=== PATIENT | male | born 1960 | race Caucasian/White ===

== ENCOUNTER → 2017-01-14 | Outpatient (CLI) | payer OTHER ==
[~2017-01-14] MED LIST: LIDOCAINE 1% 300 MG/30 ML SDV ONE
== END ==
LOC: FIMAGING 09:58
PROVIDERS: ATTEND Internal Medicine
PROC: 0JBM3ZX Excision of Left Upper Leg Subcutaneous Tissue and Fascia, Percutaneous Approach, Diagnostic (ICD-10-PCS; principal; 2017-01-14)
DX: C43.72 Malignant melanoma of left lower limb, including hip (principal)

== ENCOUNTER 2017-02-17 05:46 | Day surgery (SDC) | payer OTHER ==
[2017-02-17] MEDS ORDERED: LR 1,000 ML IV ONE (06:15)
[2017-02-17 06:22] VITALS: PULSE 63
[2017-02-17] MEDS ORDERED: BUPIVACAINE 0.5% 30 ML SDV ONE (06:52)
--- NOTE | 2017-02-17 07:02 | PDANEPAE ---
ANE History of Present Illness left groin lymph node bxc for melanoma ANE Past Medical History - Cardiovascular History Hx Hypertension: No Hx Arrhythmias: Yes Hx Chest Pain: No Hx Coronary Artery / Peripheral Vascular Disease: No Hx CHF / Valvular Disease: No Hx Palpitations: No Cardiovascular History Comment: HX OF IRREGULAR HEARTBEAT DURING SURGERY HAS BEEN FOLLOWED UP WITH CARDIOLOGY NO KNOWN REASON. BP HAS BEEN ELEVATED- F/U WITH PCP NO TX NEEDED - Pulmonary History Hx COPD: No Hx Asthma/Reactive Airway Disease: No Hx Recent Upper Respiratory Infection: No Hx Oxygen in Use at Home: No Hx Sleep Apnea: Yes Sleep Apnea Screening Result - Last Documented: Positive Pulmonary History Comment: DENIES SOB W STAIRS - Neurologic History Hx Cerebrovascular Accident: No Hx Seizures: No Hx Dementia: No Neurologic History Comment: CHRONIC MIGRAINES- recently placed on Metoprolol for H/A - Endocrine History Hx Diabetes: No Endocrine History Comment: LOW THYROID - Renal History Hx Renal Disorders: No - Liver History Hx Hepatic Disorders: No - Neurological & Psychiatric Hx Hx Neurological and Psychiatric Disorders: Yes Neurological / Psychiatric History Comment: HX OF DEPRESSION NONE CURRENTLY - Cancer History Hx Cancer: Yes Cancer History Comment: MELANOMA NEW DX - Congenital Disorder History Hx Congenital Disorders: No - GI History Hx Gastrointestinal Disorders: No - Other Health History Other Health History: OA ASLBADOR KNEES AND WRISTS. - Chronic Pain History Chronic Pain: No - Surgical History Prior Surgeries: Excision of 3 maligant moles '15. LEFT KNEE SURGERY IN 1990. LEFT KNEE SCOPE X3. 30 YEARS AGO BROKEN LEFT WRIST REPAIR. MELANOMA BX AND LYMPH NODES ANE Review of Systems Review of systems is: negative Review of Systems: - Exercise capacity Exercise capacity: >=4 METS METS (RN): 4 METS ANE Patient History - Allergies Allergies/Adverse Reactions: ENVIRONMENTAL Allergy (Mild, Uncoded 02/17/17 06:32) RHINITIS - Home Medications Home Medications: Levothyroxine 02/16/17 [Last Taken 02/17/17] Metoprolol Succinate 02/16/17 [Last Taken 02/17/17] VITAMIN D 02/16/17 [Last Taken 02/16/17] - NPO status NPO Status: no food or drink >8 hours NPO Since - Liquids (Date): 02/16/17 NPO Since - Liquids (Time): 22:30 NPO Since - Solids (Date): 02/16/17 NPO Since - Solids (Time): 21:00 - Anes Hx Anes Hx: no prior problems - Smoking Hx Smoking Status: Never smoked - Alcohol Use Alcohol Use: Heavy (3-4/day) - Family Anes Hx Family Hx Anesthesia Complications: NONE ANE Labs/Vital Signs - Vital Signs Blood Pressure: 159/95 Heart Rate: 63 Respiratory Rate: 16 O2 Sat (%): 93 Height: 180.34 cm Weight: 117.934 kg ANE Physical Exam - Airway Mallampati Score: Class 3 - Pulmonary Pulmonary: no respiratory distress - Cardiovascular Cardiovascular: regular rate and rhythym - ASA Status ASA Status: II ANE Anesthesia Plan Anesthesia Plan: GA w LMA
[2017-02-17] MEDS ORDERED: MIDAZOLAM 2 MG/2 ML VIAL IVP ONE (07:03)
[2017-02-17] MEDS ORDERED: ceFAZolin 2 GM/SWFI 2 GM/20 ML SYR IVP ONE (07:06)
--- NOTE | 2017-02-17 07:06 | PDHPUP ---
History & Physical Update H&P update statement: This history and physical update is based on an assessment of the patient which was completed after admission or registration (within 24 hours), but prior to the surgery/procedure. H&P update: H&P reviewed & patient examined, no change in patient's condition since H&P completed
[2017-02-17] MEDS ORDERED: PROPOFOL 200 MG/20 ML VIAL ONE (07:13)
[2017-02-17] MEDS ORDERED: LIDOCAINE 2% 5 ML SDV ONE (07:13)
[2017-02-17] MEDS ORDERED: fentaNYL 100 MCG/2 ML INJ ONE ×2 (07:13→08:29)
[2017-02-17] MEDS ORDERED: KETOROLAC 30 MG/1 ML SDV ONE (07:26)
[2017-02-17] MEDS ORDERED: DEXAMETHASONE 4 MG/ML VIAL ONE (07:26)
[2017-02-17] MEDS ORDERED: ONDANSETRON 4 MG/2 ML VIAL ONE (07:26)
--- NOTE | 2017-02-17 09:13 | POSTOPPROG ---
Post Op Note Date of Operation: 02/17/17 Surgeon: Jacqueline Brito Service Electrician: riana zhou Anesthesiologist: max Anesthesia: GET(General Endotracheal) Pre-op Diagnosis: recurrent melanoma Post-op Diagnosis: same Indication: 56yo M with bx-proven recurrent melanoma in left inguinal nodes Procedure: superficial and deep inguinal LN dissection Inf/Abcess present in the surg proc area at time of surgery?: No EBL: Minimal Drains: Trace Rhoades
[2017-02-17] MEDS ORDERED: OXYCODONE/APAP 5/325 TAB PO PRN (09:14)
[2017-02-17] MEDS ORDERED: fentaNYL 100 MCG/2 ML INJ IVP PRN (09:14)
[2017-02-17] MEDS ORDERED: HYDROCODONE/APAP 5/325 TAB PO PRN (09:14)
[2017-02-17] MEDS ORDERED: ONDANSETRON 4 MG/2 ML VIAL IVP PRN (09:14)
[2017-02-17] MEDS ORDERED: ACETAMINOPHEN 500 MG TAB PO PRN (09:14)
[2017-02-17] MEDS ORDERED: ALBUTEROL 3 ML DEYVIAL IH PRN (09:14)
[2017-02-17] MEDS ORDERED: NALOXONE HCL 0.4 MG/ML INJ IVP PRN ×2 (09:14)
[2017-02-17] MEDS ORDERED: HYDROmorphONE/DILAUDID 1 MG/ML INJ IVP PRN (09:14)
--- NOTE | 2017-02-17 09:16 | POSTANESTH ---
Post Anesthetic Evaluation Cardiovascular Status: Normal, Stable Respiratory Status: Normal, Stable Level of Consciousness/Mental Status: Can Participate in Eval Pain Control: Adequate, Prn Tx Ordered Nausea/Vomiting Control: Adequate, Prn Tx Ordered Complications Possibly Related to Anesthesia: None Noted
[2017-02-17 09:54] VITALS: RESP 22
[2017-02-17 12:50] VITALS: TEMP 99
[2017-02-17 13:16] VITALS: BP 136/80; O2SAT 92
--- NOTE | 2017-02-18 13:17 | GOP ---
[f rep st] OPERATIVE REPORT DATE OF OPERATION: 02/17/2017 SURGEON: Jacqueline Brito MD HOSPICE ADMINISTRATOR: Gill Storm, FAUZIA. ANESTHESIA: General. ANESTHESIOLOGIST: Edwin Beverly MD. PREOPERATIVE DIAGNOSIS: Metastatic malignant melanoma, left thigh. POSTOPERATIVE DIAGNOSIS: Metastatic malignant melanoma, left thigh. PROCEDURE PERFORMED: Left groin and thigh inguinal lymph node dissection. FINDINGS: SPECIMENS: Inguinal lymph node tissue, additional lateral tissue, [place] node and fascia. ESTIMATED BLOOD LOSS: 10 cc. INDICATIONS: The patient is a 56-year-old man, who underwent wide local excision and sentinel lymph node for malignant melanoma in January 2015. He developed a mass in his thigh and has a recurrence. DESCRIPTION OF PROCEDURE: Patient was brought into the operating room, placed supine on the table, a nd general anesthesia was administered. His left thigh and groin were prepped and draped in the usua l sterile fashion. I used 30 cc of local throughout the case. I made an incision longitudinal from his inguinal ligament, down his thigh. I created medial and lateral skin flaps. I carefully dissect ed around all the fatty erika tissue and excised this. There was a bit of melanin deposit on the fas kadi over the vastus, and so I excised the fascia, as well. The adipose tissue on the lateral side of thigh felt grainy, and so I excised additional tissue on this side. I then opened up the sheath to explore and obtain more tissue between the femoral artery and femoral vein. I then continued my diss ection cephalad, until I encountered [place] node. This was excised and sent separately. As I was d issecting, I used multiple hemoclips for the lymphatic channels, as well as the small tributary vesse ls along the saphenous vein. Hemostasis was achieved in the cavity. A 15 round silicone drain was p laced in the wound and exited inferiorly. It was sutured in place with 3-0 nylon. I closed the bledsoe th over the vessels. I then closed the deep layer with 3-0 Vicryl. Skin closed with 3-0 Vicryl, 4-0 Monocryl, and additional sutures with 3-0 nylon. Dressing was applied. He was awakened in the oper ating room, extubated, transferred to PACU in stable condition. /[id number]/MODL
== END 2017-02-17 13:10 | disposition home or self-care (01) ==
LOC: FSGY 05:46
PROVIDERS: ATTEND Surgery
PROC: 0JBM0ZX Excision of Left Upper Leg Subcutaneous Tissue and Fascia, Open Approach, Diagnostic (ICD-10-PCS; principal; 2017-02-17 07:15)
PROC: 07BJ0ZX Excision of Left Inguinal Lymphatic, Open Approach, Diagnostic (ICD-10-PCS; principal; 2017-02-17 07:15)
DX: C77.4 Secondary and unspecified malignant neoplasm of inguinal and lower limb lymph nodes (principal); C43.9 Malignant melanoma of skin, unspecified
CPT/HCPCS: J0171; J0690; J1100; J1885; J2250; J2405; J2704; J3010

== ENCOUNTER 2017-03-30 10:46 | Inpatient (IN) | payer OTHER ==
[~2017-03-30 10:46] MED LIST changes: +ACETAMINOPHEN 500 MG TAB PO ONE; -LIDOCAINE 1% 300 MG/30 ML SDV ONE; +PREGABALIN 150 MG CAP PO ONE; +ROPIVACAINE 0.2% 80 MG, EPINEPHrine 0.2 MG, KETOROLAC TROMETHAMINE 30 MG, morphINE 10 M... IU ONE; +TRANEXAMIC ACID 3,000 MG in NS 50 ML IRR ONE; +ceFAZolin 2 GM/SWFI 2 GM/20 ML SYR IVP ONE
[2017-03-30] MEDS ORDERED: BUPIVACAINE/EPI 0.5% 30 ML SDV ONE (11:10)
[2017-03-30] MEDS ORDERED: CALCIUM CHLORIDE 1 GM/10 ML INJ ONE (11:11)
[2017-03-30] MEDS ORDERED: THROMBIN (BOVINE) 5,000 UNIT VIAL TP ONE (11:11)
[2017-03-30] MEDS ORDERED: BACITRACIN 50,000 UNITS/10 ML SYR IRR ONE (11:12)
[2017-03-30] MEDS ORDERED: POLYMYXIN B SULFATE 500,000 UNIT/10 ML SYR IRR ONE (11:12)
[2017-03-30] MEDS ORDERED: LR 1,000 ML IV ONE (11:17)
[2017-03-30] MEDS ORDERED: ceFAZolin 2 GM/SWFI 20 ML SYR IVP ONE (11:45)
[2017-03-30] MEDS ORDERED: ACETAMINOPHEN 500 MG TAB ONE (11:45)
[2017-03-30] MEDS: LEVOTHYROXINE 50 MCG TAB PO SCH (11:47)
[2017-03-30] MEDS: METOPROLOL SUCCINATE XR 25 MG TAB PO SCH (11:48)
[2017-03-30] MEDS ORDERED: PREGABALIN 150 MG CAP ONE (11:49)
--- NOTE | 2017-03-30 12:41 | PDANEPAE ---
ANE History of Present Illness 56 YO m W oa Here for L TKA ANE Past Medical History - Cardiovascular History Hx Hypertension: Yes Hx Arrhythmias: Yes Hx Chest Pain: No Hx Coronary Artery / Peripheral Vascular Disease: No Hx CHF / Valvular Disease: No Hx Palpitations: No Cardiovascular History Comment: HX OF IRREGULAR HEARTBEAT DURING SURGERY HAS BEEN FOLLOWED UP WITH CARDIOLOGY NO KNOWN REASON. BP HAS BEEN ELEVATED- F/U WITH PCP NO TX NEEDED - Pulmonary History Hx COPD: No Hx Asthma/Reactive Airway Disease: No Hx Recent Upper Respiratory Infection: No Hx Oxygen in Use at Home: No Hx Sleep Apnea: Yes Sleep Apnea Screening Result - Last Documented: Positive Pulmonary History Comment: DENIES SOB W STAIRS - Neurologic History Hx Cerebrovascular Accident: No Hx Seizures: No Hx Dementia: No Neurologic History Comment: CHRONIC MIGRAINES- recently placed on Metoprolol for H/A - Endocrine History Hx Diabetes: No Endocrine History Comment: LOW THYROID - Renal History Hx Renal Disorders: No - Liver History Hx Hepatic Disorders: No - Neurological & Psychiatric Hx Hx Neurological and Psychiatric Disorders: Yes Neurological / Psychiatric History Comment: HX OF DEPRESSION NONE CURRENTLY - Cancer History Hx Cancer: Yes Cancer History Comment: MELANOMA NEW DX - Congenital Disorder History Hx Congenital Disorders: No - GI History Hx Gastrointestinal Disorders: No - Other Health History Other Health History: OA SALBADOR KNEES AND WRISTS. - Chronic Pain History Chronic Pain: No - Surgical History Prior Surgeries: Excision of 3 maligant moles '15. LEFT KNEE SURGERY IN 1990. LEFT KNEE SCOPE X3. 30 YEARS AGO BROKEN LEFT WRIST REPAIR. MELANOMA BX AND LYMPH NODES ANE Review of Systems Review of Systems: - Exercise capacity METS (RN): 4 METS ANE Patient History - Allergies Allergies/Adverse Reactions: ENVIRONMENTAL Allergy (Mild, Uncoded 02/17/17 06:32) RHINITIS - Home Medications Home medications: home medication list seen and reviewed Home Medications: Cholecalciferol Vit D3 [Vitamin D3 (*)] 5,000 units PO BID #0 02/16/17 [Last Taken 03/23/17] Levothyroxine [Synthroid 50 mcg (*)] 50 mcg PO DAILY06 #0 02/16/17 [Last Taken 03/30/17 05:30] Metoprolol Succinate Xr [Toprol Xl 25 mg (*)] 25 mg PO DAILY #0 02/16/17 [Last Taken 03/30/17 05:30] Acetaminophen [Tylenol 325mg (*)] 325 mg PO DAILY PRN 02/24/17 [Last Taken 03/29 17:00] Aspirin [Aspirin 325 mg (*)] 325 mg PO DAILY PRN 02/24/17 [Last Taken 02/28/17] Ibuprofen [Motrin (*)] 200 mg PO DAILY PRN 02/24/17 [Last Taken Unknown] - NPO status NPO Status: no food or drink >8 hours NPO Since - Liquids (Date): 03/30/17 NPO Since - Liquids (Time): 09:00 NPO Since - Solids (Date): 03/29/17 NPO Since - Solids (Time): 19:30 - Anes Hx Anes Hx: no prior problems - Smoking Hx Smoking Status: Never smoked - Alcohol Use Alcohol Use: Heavy - Family Anes Hx Family Anes Hx: none Family Hx Anesthesia Complications: NONE ANE Labs/Vital Signs - Vital Signs Blood Pressure: 166/95 Heart Rate: 68 Respiratory Rate: 16 O2 Sat (%): 95 Height: 180.34 cm Weight: 117.934 kg ANE Physical Exam - Airway Neck exam: FROM Mallampati Score: Class 3 Mouth exam: tovar - Pulmonary Pulmonary: no respiratory distress, clear to auscultation - Cardiovascular Cardiovascular: regular rate and rhythym, no murmur, rub, or gallop - ASA Status ASA Status: II ANE Anesthesia Plan Anesthesia Plan: GA with mask, spinal Regional Anesthesia: single shot NB, adductor canal FNB Total IV Anesthesia: Yes
[2017-03-30] MEDS ORDERED: MIDAZOLAM 2 MG/2 ML VIAL IVP ONE (12:43)
[2017-03-30] MEDS ORDERED: PROPOFOL/EMULSION 500 MG/50 ML BOTTLE IV ONE ×3 (12:51→14:38)
--- NOTE | 2017-03-30 13:01 | PDGENHP ---
History & Physical Chief Complaint: l knee pain History of Present Illness: l knee pain worsening with use and time Pertinent Past, Social, Family History: n/a Relevant Physical Exam: perrl. cta. rrr. soft and nt. l knee - varus angle with spurs Cardiorespiratory Assessment: rrr cta
[2017-03-30] MEDS ORDERED: TRANEXAMIC ACID 3,000 MG/50 ML BAG IRR ONE (13:02)
[2017-03-30] MEDS ORDERED: PROPOFOL 200 MG/20 ML VIAL ONE (13:45)
[2017-03-30] MEDS ORDERED: ROPIVACAINE HCL 150 MG/30 ML INJ ONE (14:20)
[2017-03-30] MEDS ORDERED: clonIDINE 1 MG/10 ML VIAL EP ONE (14:20)
[2017-03-30] MEDS ORDERED: ONDANSETRON 4 MG/2 ML VIAL IVP PRN ×2 (14:52→15:22)
[2017-03-30] MEDS ORDERED: HYDROCODONE/APAP 5/325 TAB PO PRN (14:52)
[2017-03-30] MEDS ORDERED: NALOXONE HCL 0.4 MG/ML INJ IVP PRN (14:52)
[2017-03-30] MEDS ORDERED: HYDROmorphONE/DILAUDID 1 MG/ML INJ IVP PRN (14:52)
[2017-03-30] MEDS ORDERED: OXYCODONE/APAP 5/325 TAB PO PRN (14:52)
[2017-03-30] MEDS ORDERED: fentaNYL 100 MCG/2 ML INJ IVP PRN (14:52)
[2017-03-30] MEDS ORDERED: DIPHENOXYLATE/ATROPINE LOMOTIL 1 TAB PO PRN (15:22)
[2017-03-30] MEDS ORDERED: CYCLOBENZAPRINE 10 MG TAB PO PRN (15:22)
[2017-03-30] MEDS ORDERED: MAGNESIUM HYDROXIDE 30 ML UDCUP PO PRN (15:22)
[2017-03-30] MEDS ORDERED: TEMAZEPAM 15 MG CAP PO PRN (15:22)
[2017-03-30] MEDS ORDERED: TAPENTADOL HCL 50 MG TAB PO PRN (15:22)
[2017-03-30] MEDS ORDERED: BISACODYL 10 MG SUPP PR PRN (15:22)
[2017-03-30] MEDS ORDERED: METOCLOPRAMIDE 10 MG/2 ML VIAL IVP PRN (15:22)
[2017-03-30] MEDS ORDERED: PROMETHAZINE HCL 25 MG/ML INJ IVP PRN (15:22)
[2017-03-30] MEDS ORDERED: oxyCODONE IR 5 MG TAB PO PRN (15:22)
[2017-03-30] MEDS ORDERED: POLYETHYLENE GLYCOL 3350 17 GM PKT PO PRN (15:22)
[2017-03-30] MEDS ORDERED: ONDANSETRON DISINTEGRATING 4 MG TAB PO PRN (15:22)
[2017-03-30] MEDS ORDERED: PROMETHAZINE HCL 25 MG SUPPR PR PRN (15:22)
[2017-03-30] MEDS ORDERED: diphenhydrAMINE 25 MG CAP PO PRN (15:22)
[2017-03-30] MEDS ORDERED: LACTULOSE 20 GM/30 ML UDCUP PO PRN (15:22)
--- NOTE | 2017-03-30 15:22 | POSTOPPROG ---
Post Op Note Date of Operation: 03/30/17 Surgeon: Leonila Jaime Subsea Engineer: coltrain Anesthesiologist: micah Anesthesia: Epidural, IV Sedation Pre-op Diagnosis: l knee oa Procedure: l tkr Inf/Abcess present in the surg proc area at time of surgery?: No Depth: Deep Incisional (Fascial) EBL: 100-500
[2017-03-30] MEDS ORDERED: LR 1,000 ML IV SCH (15:30)
--- NOTE | 2017-03-30 17:06 | POSTANESTH ---
Post Anesthetic Evaluation Cardiovascular Status: Normal, Stable, Similar to Pre-Op Cond Respiratory Status: Normal, Stable, Similar to Pre-op Cond. Level of Consciousness/Mental Status: Can Participate in Eval, Alert and Oriented Pain Control: Adequate, Prn Tx Ordered Nausea/Vomiting Control: Adequate, Prn Tx Ordered Complications Possibly Related to Anesthesia: None Noted
[2017-03-30] MEDS: ACETAMINOPHEN 325 MG TAB PO SCH ×2 (17:28→23:15)
[2017-03-30] MEDS: traMADol 50 MG TAB PO SCH ×2 (17:28→23:14)
[2017-03-30] MEDS: KETOROLAC 30 MG/1 ML SDV IVP SCH ×2 (17:28→23:15)
--- NOTE | 2017-03-30 18:56 | GOP ---
[f rep st] OPERATIVE REPORT DATE OF OPERATION: 03/30/2017 SURGEON: Leonila Jaime MD SUBWAY CAR REPAIRER: Lorenzo Read, CSFA, LSA, whose presence was medically necessary. ANESTHESIA: By epidural, plus IV sedation. PREOPERATIVE DIAGNOSIS: Left knee osteoarthritis. POSTOPERATIVE DIAGNOSIS: Left knee osteoarthritis. PROCEDURE PERFORMED: Left total knee arthroplasty. FINDINGS: INDICATIONS: This is a 56-year-old male with a long history of left knee pain worsening with use and with time, despite multiple conservative measures. Radiology exams revealed [id number] osteoarthr itic changes particularly in the medial compartment. He wishes to have surgery in order to resolve t he problem. DESCRIPTION OF PROCEDURE: The patient was brought to the operating room after the left side had been identified as the correct side by the patient, nurse and physician. Once in the operating room, he was given epidural nerve block and then placed supine on the operating table, and placed under IV sed ation. A tourniquet was placed around the upper portion of the left thigh, and the left lower extrem ity was then sterilely prepped and draped in the usual fashion using GSI solution. Once prepped and draped, limb was exsanguinated, tourniquet inflated to 250 mmHg. A linear incision was made on the anterior portion of knee with sharp dissection carried down through the skin and subcutaneous layer, with bleeding controlled using electrocautery. An incision was mad e through the extensor mechanism using parapatellar incision with patella brought to the side but not everted. He was noted to have an abundant amount of osteophytic spurring within the knee, as well a s 2 large cartilaginous loose bodies within the anterior portion of the knee. Once the ACL as well a s the medial and lateral meniscus had been removed, the 1st jig from [employer] was put into place wi th the lug holes drilled for the distal end of the femur, and a 2nd jig was then placed with its feet lodged into the lug holes drilled in the distal end of the femur. The end cutting block was then pu t into place. The jig was then removed. An oscillating saw was used to remove the distal end of the femur. Drill holes had been made in the distal end of the femur, which were marked. Pins were repl aced back into those same pin holes, and a 3-in-1 cutting block was put into place and locked in plac e with locking screws. Lug holes were drilled for the femoral component and the anterior, as well as the anterior chamfer and posterior cuts were made. This jig was removed and then subsequent jig was placed and locked in the lug holes associated with the femoral component, and the posterior chamber cuts were made. A trial femoral component was put into place. The knee was able to achieve full ext ension, suggesting adequate amount of bone had been removed. The trial was then removed. The knee was brought to maximal flexion with the tibia subluxed anteriorly. Soft tissue was removed from the anterior portion of the knee. The tibial cutting block was put into place. Its feet were m arked and cartilage removed from the area where the feet were supposed to sit. Once the cartilage monaco d been removed, the block was put back into place and noted to be in good alignment, both in varus, v algus and posterior slope. It was pinned into place. Locking pin was added. An oscillating saw was used to remove the proximal portion of the tibia. Trials were placed within the tibia, noted to ach ieve full extension suggesting adequate amount of bone had been removed. The trials were removed. T he knee was brought back to full flexion. The tibia was subluxed anteriorly. The tibial guide was p ut into place. It was pinned into place and a keel punch passed through the tibial trial. Once comp leted, the trial was removed. Attention was turned to the patella. With the knee placed in extended position, the patella was ever henok. Soft tissue was removed from around the patella, it was measured to be 24 mm in thickness. Osc illating saw was used to remove the posterior portion of the patella, leaving 16 mm of bone. Multipl e trials were sized onto the patella, noted that a 35 mm button fit best and lug holes were drilled f or a 35 mm patellar button. All cut surfaces of bone were then thoroughly irrigated with an antibiotic solution using pulsatile l avage while cement was being mixed. Once cement was doughy, it was placed in the proximal portion of the tibia with a custom-made Conformist tibial component put into place and excess cement removed us ing Eugene elevator. Cement was then placed on the posterior skids of the femoral component with ceme nt placed on the distal anterior portions of the bone with a custom-made cruciate-retaining left Conf ormist femoral component put in place. Excess cement was removed using Eugene elevator. Trial liners were placed in the tibial tray. The knee was brought to full extension over pressurized cement. Ce ment was placed on the cut surface of the patella with a 35 mm patellar button clamped into place. E xcess cement was removed using a Eugene elevator. Once cement had hardened, any excess cement that was found was removed using a combination of rongeur and osteotome. Multiple trials were placed in the tibia, noted that a lateral C and a medial 8 inse rt seemed to fit best, gaining full extension and good stability through the knee. Therefore, the kn ee was thoroughly irrigated and a lateral C, medial 8 inserts were placed in the tibial tray. Once l ocked into place, a joint cocktail was injected in the posterior capsule in the periosteum of the fem ur and the tibia, as well as tranexamic acid placed within the knee. The tourniquet was released at 65 minutes. Bleeding was controlled using electrocautery. The wound was then closed in layers to include 0 Vicryl suture in a [id number] type stitch for the extenso r mechanism, with plasmagel placed intra-articularly. 0 Vicryl and 2-0 Vicryl suture used for the srinivasan bcutaneous tissues, and a 3-0 V-Loc suture in a running subcuticular stitch for the skin. Then, 30 c c of Marcaine was infused around the actual incision site itself. The wound was then dressed with St tony-Strips, Xeroform, 4 x 4's, wrapped in Kerlix. Leg was completely undraped in the operating room, tourniquet removed from the thigh, and an Ricky wrap placed around the knee. He was then transferred onto a stretcher, and sent to recovery room in good condition. TOURNIQUET TIME: 65 minutes. /[id number]/MODL
[2017-03-30] MEDS: SENNOSIDES/DOCUSATE SODIUM TAB PO SCH (20:18)
[2017-03-30] MEDS: FAMOTIDINE 20 MG TAB PO SCH (20:18)
[2017-03-30] MEDS: ceFAZolin 2 GM/DEXTROSE 100 ML IV SCH (20:18)
[2017-03-30 23:46] VITALS: RESP 16
[2017-03-31] MEDS: ceFAZolin 2 GM/DEXTROSE 100 ML IV SCH (05:00)
[2017-03-31] MEDS: KETOROLAC 30 MG/1 ML SDV IVP SCH ×3 (05:01→19:33)
[2017-03-31] MEDS: ACETAMINOPHEN 325 MG TAB PO SCH ×3 (05:01→20:41)
[2017-03-31] MEDS: LEVOTHYROXINE 50 MCG TAB PO SCH (05:01)
[2017-03-31] MEDS: traMADol 50 MG TAB PO SCH ×3 (05:01→20:41)
[2017-03-31] MEDS ORDERED: RIVAROXABAN 10 MG TAB PO SCH (09:00)
[2017-03-31] MEDS: SENNOSIDES/DOCUSATE SODIUM TAB PO SCH (09:34)
[2017-03-31] MEDS: METOPROLOL SUCCINATE XR 25 MG TAB PO SCH (09:35)
[2017-03-31] MEDS: FAMOTIDINE 20 MG TAB PO SCH (09:36)
[2017-03-31 11:08] VITALS: O2SAT 93
[2017-03-31 15:10] VITALS: BP 123/72; PULSE 64; TEMP 98.2
--- NOTE | 2017-03-31 15:47 | ASMTCMCOM ---
CM Note CM Note Notes: PT rec outpatient, OT clears pt. Anticipate pt will d/c when medically stable. No CM d/c needs identified at this time. CM available for changes/needs. Date Signed: 03/31/2017 03:47 PM Electronically Signed By:BRENDA Perea
--- NOTE | 2017-03-31 18:14 | SOAPPROG ---
SOAP Progress Note Assessment/Plan: Assessment: Plan: Subjective: states he's confortable and ready for home dressing C&D with foot NVI DC to home Objective: Vital Signs Temp Pulse Resp BP Pulse Ox 36.8 C 64 16 123/72 H 93 03/31/17 15:08 03/31/17 15:08 03/31/17 15:08 03/31/17 15:08 03/31/17 15:08 Laboratory Results 03/31/17 05:08 03/30/17 03/31/17 04/01/17 05:59 05:59 05:59 Intake Total 800 2520 Output Total 300 300 Balance 500 2220 ICD10 Worksheet Patient Problems: Problems Problem Status Onset Arthritis of knee Acute - ICD10 Problem Qualifiers (1) Arthritis of knee
--- NOTE | 2017-04-01 09:47 | ASDISCHSUM ---
Discharge Information Plan Status:Home with No Needs Medically Cleared to Leave: Discharge Date:03/31/2017 09:00 PM CM D/C Disposition:Home, Routine, Self-Care ADT D/C Disposition:Home Health Service Projected Discharge Date:03/31/2017 09:00 PM Transportation at D/C: Discharge Delay Reason: Follow-Up Date:03/31/2017 09:00 PM Discharge Slot: Final Diagnosis: Placement Information Patient Contact Information Contact Name:GOKUL Relationship:Sergey Address: Home Phone: City:[facility] Phone: [facility]/uShare Code:[place] Email: Financial Information Financial Class:HMO and PPO Plans Primary Plan Desc:HMO [employer] Primary Plan Number:[id number] Secondary Plan Desc: Secondary Plan Number: Assessment Information CM [employer] Drawer Assessment CM Note CM Note Notes: José Luis is planning to discharge the following day from the hospital. His son will be in for the holidays and to take care of him. José Luis said there is a small possibility his surgery will be postponed. He is waiting to hear back from his Primary Care provider for the "go ahead". This will be José Luis's 4th knee surgery. He is well informed, has his mobility equipment, and is planning to do outpatient physical therapy. Date Signed: 03/23/2017 10:24 AM Electronically Signed By:Niharika Trevino [facility] CM Progress Note CM Note CM Note Notes: PT rec outpatient, OT clears pt. Anticipate pt will d/c when medically stable. No CM d/c needs identified at this time. CM available for changes/needs. Date Signed: 03/31/2017 03:47 PM Electronically Signed By:BRENDA Perea Intervention Information
== END 2017-03-31 21:00 | disposition home health service (06) | DRG 470 ==
LOC: F3N 10:46
PROVIDERS: ADMIT Orthopaedic Surgery; ATTEND Orthopaedic Surgery
PROC: 0SRD0J9 Replacement of Left Knee Joint with Synthetic Substitute, Cemented, Open Approach (ICD-10-PCS; principal; 2017-03-30 12:45)
DX: M17.12 Unilateral primary osteoarthritis, left knee (principal)
CPT/HCPCS: 97161-GP; 97166-GO; C1713; J0171; J0690; J0735; J1885; J2250; J2704; J2795

== ENCOUNTER 2018-03-02 16:17 | Inpatient (IN) | payer OTHER ==
--- NOTE | 2018-03-02 16:41 | EDPHY ---
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 He is being treated by Ekta Arvizu from [facility] with Nivolumab for melanoma. His last treatment was 2 weeks ago. He was seen by Nephrology and noted to have creatinine greater than 5 on 2 separate blood draws and was sent to the ER. Says he has increased urinary frequency and fatigue and myalgias, also some congestion. No fevers or chills. No palpitations or dizziness. No syncope. REVIEW OF SYSTEMS: Eye: no change in vision ENT: no sore throat Cardiac: no chest pain or syncope Pulmonary: no cough or SOB Abdomen: no vomiting, diarrhea, abdominal pain Musculoskeletal: Myalgias Skin: no rash Neuro: no headache Constitutional: no fever : HPI A comprehensive 10 point review of systems is otherwise negative aside from elements mentioned in the history of present illness. PAST MEDICAL HISTORY: Includes melanoma, chronic migraines, sleep apnea Social history: Nonsmoker General Appearance: Alert and conversant, cooperative. Eyes: No scleral icterus. ENT, Mouth: Slightly dry mucous membranes. Respiratory: Normal respiratory effort, breath sounds equal, lungs are clear to auscultation. Cardiovascular: Regular rate and rhythm. Gastrointestinal: Abdomen is soft and non tender. No suprapubic fullness. Neurological: Alert, normal speech, ambulatory. Skin: Warm and dry, no rashes. Musculoskeletal: No peripheral edema. Psychiatric: Not agitated. Emergency Department course/MDM: Postvoid residual is about 100 mL. EKG and labs performed. Admission to hospitalist service for further evaluation. Does not appear to have bladder outlet obstruction with low postvoid residual. 1655: Creatinine i-STAT is 5.7, admission for renal failure, currently does not have hyperkalemia. Smoking Status: Never smoked Constitutional: Initial Vital Signs Temperature (C) 36.7 C 03/02/18 16:18 Heart Rate 82 03/02/18 16:18 Respiratory Rate 16 03/02/18 16:18 Blood Pressure 210/107 H 03/02/18 16:18 O2 Sat (%) 97 03/02/18 16:18 O2 Delivery Mode Room Air Allergies/Adverse Reactions: ENVIRONMENTAL Allergy (Mild, Uncoded 02/17/17 06:32) RHINITIS Home Medications: Medication Instructions Recorded Cholecalciferol Vit D3 [Vitamin D3 10,000 units PO DAILY #0 02/16/17 (*)] Levothyroxine [Synthroid 50 mcg 50 mcg PO DAILY06 #0 02/16/17 (*)] Metoprolol Succinate Xr [Toprol Xl 25 mg PO DAILY06 #0 02/16/17 25 mg (*)] Acetaminophen [Tylenol 325mg (*)] 325 mg PO DAILY PRN 02/24/17 Omeprazole 40 mg PO DAILY06 03/02/18 Medical Decision Making - Diagnostics EKG Interpretation: 12-lead EKG interpreted by me; official reading is in computer system. My interpretation is sinus rhythm rate 77 with normal intervals. Differential Diagnosis: Differential considered including but not limited to intrinsic renal disease, medication side effect, bladder outlet obstruction, nephritis Consult/Admit Bed Type: [place] [id number] - Data Points Laboratory Results: Laboratory Results 03/02/18 16:48 03/02/18 16:48 03/02/18 03/02/18 03/02/18 16:53 16:48 16:48 WBC RBC Hgb POC Hgb 14.3 gm/dL gm/dL (13.7-17.5) Hct POC Hct 42 % % (40-51) MCV MCH MCHC RDW Plt Count MPV Neut % (Auto) Lymph % (Auto) [place] % (Auto) Eos % (Auto) Baso % (Auto) Nucleat RBC Rel Count Absolute Neuts (auto) Absolute Lymphs (auto) Absolute Monos (auto) Absolute Eos (auto) Absolute Basos (auto) Absolute Nucleated RBC Immature Gran % Immature Gran # POC Sodium 138 mEq/L mEq/L (135-145) Sodium 138 mEq/L mEq/L (135-145) POC Potassium 4.6 mEq/L mEq/L (3.3-5.0) Potassium 5.0 mEq/L mEq/L (3.3-5.0) POC Chloride 106 mEq/L mEq/L (97-110) Chloride 105 mEq/L mEq/L (97-110) Carbon Dioxide 18 mEq/l L mEq/l (22-31) Anion Gap 15 mEq/L H mEq/L (6-14) POC BUN 56 mg/dL H mg/dL (7-23) BUN 58 mg/dL H mg/dL (7-23) Creatinine 5.9 mg/dL H mg/dL (0.7-1.3) POC Creatinine 5.7 mg/dL H mg/dL (0.7-1.3) Estimated GFR 10 Glucose 99 mg/dL mg/dL (70-100) POC Glucose 98 mg/dL mg/dL (70-100) Calcium 9.7 mg/dL mg/dL (8.5-10.4) Phosphorus 5.8 mg/dL H mg/dL (2.5-4.5) Magnesium 2.2 mg/dL mg/dL (1.6-2.3) Total Bilirubin 0.4 mg/dL mg/dL (0.1-1.4) Conjugated Bilirubin 0.4 mg/dL mg/dL (0.0-0.5) Unconjugated Bilirubin 0.0 mg/dL mg/dL (0.0-1.1) AST 13 IU/L L IU/L (17-59) ALT 22 IU/L IU/L (21-72) Alkaline Phosphatase 76 IU/L IU/L (38-126) Creatine Kinase 78 IU/L IU/L (0-224) Total Protein 7.7 g/dL g/dL (6.3-8.2) Albumin 4.2 g/dL g/dL (3.5-5.0) 03/02/18 16:48 WBC 9.97 10^3/uL H 10^3/uL (3.80-9.50) RBC 4.31 10^6/uL L 10^6/uL (4.40-6.38) Hgb 13.6 g/dL L g/dL (13.7-17.5) POC Hgb Hct 39.2 % L % (40.0-51.0) POC Hct MCV 91.0 fL fL (81.5-99.8) MCH 31.6 pg pg (27.9-34.1) MCHC 34.7 g/dL g/dL (32.4-36.7) RDW 12.4 % % (11.5-15.2) Plt Count 476 10^3/uL H 10^3/uL (150-400) MPV 9.1 fL fL (8.7-11.7) Neut % (Auto) 71.5 % % (39.3-74.2) Lymph % (Auto) 9.5 % L % (15.0-45.0) [place] % (Auto) 13.5 % H % (4.5-13.0) Eos % (Auto) 3.3 % % (0.6-7.6) Baso % (Auto) 1.6 % % (0.3-1.7) Nucleat RBC Rel Count 0.0 % % (0.0-0.2) Absolute Neuts (auto) 7.12 10^3/uL H 10^3/uL (1.70-6.50) Absolute Lymphs (auto) 0.95 10^3/uL L 10^3/uL (1.00-3.00) Absolute Monos (auto) 1.35 10^3/uL H 10^3/uL (0.30-0.80) Absolute Eos (auto) 0.33 10^3/uL 10^3/uL (0.03-0.40) Absolute Basos (auto) 0.16 10^3/uL H 10^3/uL (0.02-0.10) Absolute Nucleated RBC 0.00 10^3/uL 10^3/uL (0-0.01) Immature Gran % 0.6 % % (0.0-1.1) Immature Gran # 0.06 10^3/uL 10^3/uL (0.00-0.10) POC Sodium Sodium POC Potassium Potassium POC Chloride Chloride Carbon Dioxide Anion Gap POC BUN BUN Creatinine POC Creatinine Estimated GFR Glucose POC Glucose Calcium Phosphorus Magnesium Total Bilirubin Conjugated Bilirubin Unconjugated Bilirubin AST ALT Alkaline Phosphatase Creatine Kinase Total Protein Albumin Medications Given: Discontinued Medications Sodium Chloride (Ns) 1,000 mls @ 0 mls/hr IV EDNOW ONE; Wide Open PRN Reason: Protocol Stop: 03/02/18 17:25 Last Admin: 03/02/18 17:29 Dose: 1,000 mls Point of Care Test Results: Chemistry 03/02/18 16:53 POC Sodium 138 mEq/L mEq/L (135-145) POC Potassium 4.6 mEq/L mEq/L (3.3-5.0) POC Chloride 106 mEq/L mEq/L (97-110) POC BUN 56 mg/dL H mg/dL (7-23) POC Creatinine 5.7 mg/dL H mg/dL (0.7-1.3) POC Glucose 98 mg/dL mg/dL (70-100) ISTAT H&H 03/02/18 16:53 POC Hgb 14.3 gm/dL gm/dL (13.7-17.5) POC Hct 42 % % (40-51) Departure - Departure Disposition: [facility] Inpatient Acute Clinical Impression: Acute renal failure (ARF) Condition: Good
--- NOTE | 2018-03-02 16:57 | CPEKG ---
Test Reason : OPEN Blood Pressure : / mmHG Vent. Rate : 077 BPM Atrial Rate : 078 BPM P-R Int : 197 ms QRS Dur : 090 ms QT Int : 360 ms P-R-T Axes : 009 056 005 degrees QTc Int : 408 ms Sinus rhythm Low voltage, precordial leads Confirmed by Louie Sparks ([id number]) on 03/02/2018 4:56:11 PM Referred By: Confirmed By:Louie Sparks
[2018-03-02 17:07] LABS: PLATELET COUNT 476 10^3/uL (150-400)
[2018-03-02] MEDS ORDERED: NS 1,000 ML IV ONE (17:24)
[2018-03-02] MEDS ORDERED: ONDANSETRON DISINTEGRATING 4 MG TAB PO PRN (17:41)
[2018-03-02] MEDS ORDERED: ONDANSETRON 4 MG/2 ML VIAL IVP PRN (17:41)
[2018-03-02] MEDS ORDERED: NS 1,000 ML IV SCH (17:45)
[2018-03-02 17:55] LABS: CREATINE KINASE 78 IU/L (0-224)
--- NOTE | 2018-03-02 18:31 | PDGENHP ---
Addendum entered and electronically signed by Naomi Larsen NP 03/02/18 19:59 : Spoke with Dr. Arvizu. She plans to see the pt tomorrow. She does not think it is the medication that is causing this, if it is; it is quite rare. Apparently, the pt has a history of chronic NSAID use but has minimized the amount. 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 For 11 months, pt has been treated with Nivolumab for his melanoma which he reports he received every 1-2 weeks via IV and his last and final treatment was 2 weeks ago. This is with Janna Arvizu at the [facility]. He reports initially, his creatinine was 1.1 and would have lab work performed every 2 weeks to monitor his renal function. Approximately 3-6 months starting therapy, his creatinine was 1.5. Since beginning the medication, he reports fatigue, myalgia, urinary frequency. He occasionally has migraines but denies experiencing one now. Denies chest pain, SOB, lightheadedness, dysuria, N/V, fevers, chills. Past Medical/Surgical History 1. Metastatic melanoma of left femoral lymph node (2017; no evidence of melanoma elsewhere in the leg) 2. Hypothyroidism 3. Knee OA 4. JASPREET Social 1. Lives independently with 2 dogs 2. Denies tobacco or illicit drug use 3. Drinks beer and wine daily; 14-21 drinks/week 4. Has children living in [place] and [place] Vital Signs 190/102 70 HR 24 respirations 95% RA 36.4c History Information - Allergies/Home Medication List Allergies/Adverse Reactions: ENVIRONMENTAL Allergy (Mild, Uncoded 02/17/17 06:32) RHINITIS Home Medications: Cholecalciferol Vit D3 [Vitamin D3 (*)] 10,000 units PO DAILY #0 02/16/17 [Last Taken 03/02/18] Levothyroxine [Synthroid 50 mcg (*)] 50 mcg PO DAILY06 #0 02/16/17 [Last Taken 03/02/18] Metoprolol Succinate Xr [Toprol Xl 25 mg (*)] 25 mg PO DAILY06 #0 02/16/17 [ Last Taken 03/02/18] Acetaminophen [Tylenol 325mg (*)] 325 mg PO DAILY PRN 02/24/17 [Last Taken 03/29 17:00] Omeprazole 40 mg PO DAILY06 03/02/18 [Last Taken 03/02/18] I have personally reviewed and updated: family history, medical history, social history, surgical history Past Medical History: See HPI List - Surgical History Additional surgical history: See HPI List - Family History Positive for: cancer Additional family history: Lung cancer - Social History Smoking Status: Never smoked Alcohol Use: Occasionally Drug Use: None Review of Systems Review of Systems: ROS: 10pt was reviewed & negative except for what was stated in HPI & below Constitutional: Reports: other (Chronic fatigue and myalgia) EENMT: Reports: no symptoms Cardiac: Reports: no symptoms Respiratory: Reports: no symptoms Gastrointestinal: Reports: no symptoms Genitourinary: Reports: frequency Muscolosketal: Reports: other (generalized myalgia) Skin: Reports: no symptoms Neurological: Reports: headache (Hx of migraines; no MEDINA now) Hematologic/Lymphatic: Reports: no symptoms Immunologic/Allergy: Reports: other (See allergy list) Physical Exam Physical Exam: Lab data and imaging reviewed EKG: SR, 78 bpm BUN/creatinine: 56/5.7 Anion gap: 15 WBC: 9.97 Hgb/Hct: 13.6/39.2 Temp Pulse Resp BP Pulse Ox 36.4 C 70 24 H 190/102 H 95 03/02/18 17:42 03/02/18 17:42 03/02/18 17:42 03/02/18 17:42 03/02/18 17:42 Constitutional: no apparent distress, appears nourished, not in pain Eyes: PERRL, anicteric sclera, EOMI Ears, Nose, Mouth, Throat: moist mucous membranes, hearing normal, ears appear normal, no oral mucosal ulcers Cardiovascular: regular rate and rhythym, no murmur, rub, or gallop, No edema Peripheral Pulses: 2+: dorsalis-pedis (R) (Radial 2+), dorsalis-pedis (L) ( Radial 2+) Respiratory: no respiratory distress, no rales or rhonchi, clear to auscultation Gastrointestinal: normoactive bowel sounds, soft, non-tender abdomen, no palpable masses, other (Round abdomen) Genitourinary: no bladder fullness, no bladder tenderness, other (CVA tenderness negative) Skin: warm, normal color, no rashes or abrasions, no fluctuance, no induration, No mottled Musculoskeletal: full muscle strength, no muscle tenderness, normal joint ROM, no joint effusions Neurologic: AAOx3, sensation intact bilaterally, CN II-XII Intact Psychiatric: interacting appropriately, not anxious, not encephalopathic, thought process linear Lymph, Heme, Immunologic: no cervical LAD, no supraclavicular LAD Lab Data & Imaging Review 03/02/18 16:48 03/02/18 16:48 WBC 9.97 10^3/uL (3.80-9.50) H 03/02/18 16:48 RBC 4.31 10^6/uL (4.40-6.38) L 03/02/18 16:48 Hgb 13.6 g/dL (13.7-17.5) L 03/02/18 16:48 POC Hgb 14.3 gm/dL (13.7-17.5) 03/02/18 16:53 Hct 39.2 % (40.0-51.0) L 03/02/18 16:48 POC Hct 42 % (40-51) 03/02/18 16:53 MCV 91.0 fL (81.5-99.8) 03/02/18 16:48 MCH 31.6 pg (27.9-34.1) 03/02/18 16:48 MCHC 34.7 g/dL (32.4-36.7) 03/02/18 16:48 RDW 12.4 % (11.5-15.2) 03/02/18 16:48 Plt Count 476 10^3/uL (150-400) H 03/02/18 16:48 MPV 9.1 fL (8.7-11.7) 03/02/18 16:48 Neut % (Auto) 71.5 % (39.3-74.2) 03/02/18 16:48 Lymph % (Auto) 9.5 % (15.0-45.0) L 03/02/18 16:48 [place] % (Auto) 13.5 % (4.5-13.0) H 03/02/18 16:48 Eos % (Auto) 3.3 % (0.6-7.6) 03/02/18 16:48 Baso % (Auto) 1.6 % (0.3-1.7) 03/02/18 16:48 Nucleat RBC Rel Count 0.0 % (0.0-0.2) 03/02/18 16:48 Absolute Neuts (auto) 7.12 10^3/uL (1.70-6.50) H 03/02/18 16:48 Absolute Lymphs (auto) 0.95 10^3/uL (1.00-3.00) L 03/02/18 16:48 Absolute Monos (auto) 1.35 10^3/uL (0.30-0.80) H 03/02/18 16:48 Absolute Eos (auto) 0.33 10^3/uL (0.03-0.40) 03/02/18 16:48 Absolute Basos (auto) 0.16 10^3/uL (0.02-0.10) H 03/02/18 16:48 Absolute Nucleated RBC 0.00 10^3/uL (0-0.01) 03/02/18 16:48 Immature Gran % 0.6 % (0.0-1.1) 03/02/18 16:48 Immature Gran # 0.06 10^3/uL (0.00-0.10) 03/02/18 16:48 POC Sodium 138 mEq/L (135-145) 03/02/18 16:53 Sodium 138 mEq/L (135-145) 03/02/18 16:48 POC Potassium 4.6 mEq/L (3.3-5.0) 03/02/18 16:53 Potassium 5.0 mEq/L (3.3-5.0) 03/02/18 16:48 POC Chloride 106 mEq/L (97-110) 03/02/18 16:53 Chloride 105 mEq/L (97-110) 03/02/18 16:48 Carbon Dioxide 18 mEq/l (22-31) L 03/02/18 16:48 Anion Gap 15 mEq/L (6-14) H 03/02/18 16:48 POC BUN 56 mg/dL (7-23) H 03/02/18 16:53 BUN 58 mg/dL (7-23) H 03/02/18 16:48 Creatinine 5.9 mg/dL (0.7-1.3) H 03/02/18 16:48 POC Creatinine 5.7 mg/dL (0.7-1.3) H 03/02/18 16:53 Estimated GFR 10 03/02/18 16:48 Glucose 99 mg/dL (70-100) 03/02/18 16:48 POC Glucose 98 mg/dL (70-100) 03/02/18 16:53 Calcium 9.7 mg/dL (8.5-10.4) 03/02/18 16:48 Phosphorus 5.8 mg/dL (2.5-4.5) H 03/02/18 16:48 Magnesium 2.2 mg/dL (1.6-2.3) 03/02/18 16:48 Total Bilirubin 0.4 mg/dL (0.1-1.4) 03/02/18 16:48 Conjugated Bilirubin 0.4 mg/dL (0.0-0.5) 03/02/18 16:48 Unconjugated Bilirubin 0.0 mg/dL (0.0-1.1) 03/02/18 16:48 AST 13 IU/L (17-59) L 03/02/18 16:48 ALT 22 IU/L (21-72) 03/02/18 16:48 Alkaline Phosphatase 76 IU/L (38-126) 03/02/18 16:48 Creatine Kinase 78 IU/L (0-224) 03/02/18 16:48 Total Protein 7.7 g/dL (6.3-8.2) 03/02/18 16:48 Albumin 4.2 g/dL (3.5-5.0) 03/02/18 16:48 Assessment & Plan Plan: 57 y/o male presents hypertensive and in acute renal failure 1. Acute renal failure -Renal failure metabolic acidosis; anion gap 15 -STAT Renal US w/dopplers; results may have limitations d/t BMI and lack of NPO status -IVF -Nephrology consulted and aware; spoke with Dr. Stephan Staley who discussed the possibility of renal biopsy. Dr. Lopez will be following the pt. -Fena score 3.68 indicating ATN -Oncology consulted; LVM for Dr. Janna Arvizu to consult. -Etiology is unclear at the moment; possibly from Nivolumab which has a 12-42% chance of increasing serum creatinine -Avoid nephrotoxic medications; be cautious with renal-dosed medications 2. Hypertension -Hydralazine IVP if SBP > 170 PRN -Continue metoprolol 3. Hypothyroidism: continue levothyroxine 4. JASPREET Diet: NPO for US, renal afterwards VTE ppx: SCDs Code: Full Dispo: Admit to inpatient <Sukumar Quevedo - Last Filed: 03/02/18 21:59> History and Physical - History of Present Illness Review of Systems Review of Systems: Physical Exam Physical Exam: Temp Pulse Resp BP Pulse Ox 36.9 C 67 18 170/105 H 97 03/02/18 19:29 03/02/18 19:29 03/02/18 19:29 03/02/18 19:46 03/02/18 19:29 Lab Data & Imaging Review 03/02/18 16:48 03/02/18 16:48 WBC 9.97 10^3/uL (3.80-9.50) H 03/02/18 16:48 RBC 4.31 10^6/uL (4.40-6.38) L 03/02/18 16:48 Hgb 13.6 g/dL (13.7-17.5) L 03/02/18 16:48 POC Hgb 14.3 gm/dL (13.7-17.5) 03/02/18 16:53 Hct 39.2 % (40.0-51.0) L 03/02/18 16:48 POC Hct 42 % (40-51) 03/02/18 16:53 MCV 91.0 fL (81.5-99.8) 03/02/18 16:48 MCH 31.6 pg (27.9-34.1) 03/02/18 16:48 MCHC 34.7 g/dL (32.4-36.7) 03/02/18 16:48 RDW 12.4 % (11.5-15.2) 03/02/18 16:48 Plt Count 476 10^3/uL (150-400) H 03/02/18 16:48 MPV 9.1 fL (8.7-11.7) 03/02/18 16:48 Neut % (Auto) 71.5 % (39.3-74.2) 03/02/18 16:48 Lymph % (Auto) 9.5 % (15.0-45.0) L 03/02/18 16:48 [place] % (Auto) 13.5 % (4.5-13.0) H 03/02/18 16:48 Eos % (Auto) 3.3 % (0.6-7.6) 03/02/18 16:48 Baso % (Auto) 1.6 % (0.3-1.7) 03/02/18 16:48 Nucleat RBC Rel Count 0.0 % (0.0-0.2) 03/02/18 16:48 Absolute Neuts (auto) 7.12 10^3/uL (1.70-6.50) H 03/02/18 16:48 Absolute Lymphs (auto) 0.95 10^3/uL (1.00-3.00) L 03/02/18 16:48 Absolute Monos (auto) 1.35 10^3/uL (0.30-0.80) H 03/02/18 16:48 Absolute Eos (auto) 0.33 10^3/uL (0.03-0.40) 03/02/18 16:48 Absolute Basos (auto) 0.16 10^3/uL (0.02-0.10) H 03/02/18 16:48 Absolute Nucleated RBC 0.00 10^3/uL (0-0.01) 03/02/18 16:48 Immature Gran % 0.6 % (0.0-1.1) 03/02/18 16:48 Immature Gran # 0.06 10^3/uL (0.00-0.10) 03/02/18 16:48 POC Sodium 138 mEq/L (135-145) 03/02/18 16:53 Sodium 138 mEq/L (135-145) 03/02/18 16:48 POC Potassium 4.6 mEq/L (3.3-5.0) 03/02/18 16:53 Potassium 5.0 mEq/L (3.3-5.0) 03/02/18 16:48 POC Chloride 106 mEq/L (97-110) 03/02/18 16:53 Chloride 105 mEq/L (97-110) 03/02/18 16:48 Carbon Dioxide 18 mEq/l (22-31) L 03/02/18 16:48 Anion Gap 15 mEq/L (6-14) H 03/02/18 16:48 POC BUN 56 mg/dL (7-23) H 03/02/18 16:53 BUN 58 mg/dL (7-23) H 03/02/18 16:48 Creatinine 5.9 mg/dL (0.7-1.3) H 03/02/18 16:48 POC Creatinine 5.7 mg/dL (0.7-1.3) H 03/02/18 16:53 Estimated GFR 10 03/02/18 16:48 Glucose 99 mg/dL (70-100) 03/02/18 16:48 POC Glucose 98 mg/dL (70-100) 03/02/18 16:53 Calcium 9.7 mg/dL (8.5-10.4) 03/02/18 16:48 Phosphorus 5.8 mg/dL (2.5-4.5) H 03/02/18 16:48 Magnesium 2.2 mg/dL (1.6-2.3) 03/02/18 16:48 Total Bilirubin 0.4 mg/dL (0.1-1.4) 03/02/18 16:48 Conjugated Bilirubin 0.4 mg/dL (0.0-0.5) 03/02/18 16:48 Unconjugated Bilirubin 0.0 mg/dL (0.0-1.1) 03/02/18 16:48 AST 13 IU/L (17-59) L 03/02/18 16:48 ALT 22 IU/L (21-72) 03/02/18 16:48 Alkaline Phosphatase 76 IU/L (38-126) 03/02/18 16:48 Creatine Kinase 78 IU/L (0-224) 03/02/18 16:48 Total Protein 7.7 g/dL (6.3-8.2) 03/02/18 16:48 Albumin 4.2 g/dL (3.5-5.0) 03/02/18 16:48 Urine Color PALE YELLOW 03/02/18 18:00 Urine Appearance CLEAR 03/02/18 18:00 Urine pH 5.0 (5.0-7.5) 03/02/18 18:00 Ur Specific [place] 1.008 (1.002-1.030) 03/02/18 18:00 Urine Protein NEGATIVE (NEGATIVE) 03/02/18 18:00 Urine Ketones NEGATIVE (NEGATIVE) 03/02/18 18:00 Urine Blood 1+ (NEGATIVE) H 03/02/18 18:00 Urine Nitrate NEGATIVE (NEGATIVE) 03/02/18 18:00 Urine Bilirubin NEGATIVE (NEGATIVE) 03/02/18 18:00 Urine Urobilinogen NEGATIVE EU (0.2-1.0) 03/02/18 18:00 Ur Leukocyte Esterase NEGATIVE (NEGATIVE) 03/02/18 18:00 Urine RBC 1-3 /hpf (0-3) 03/02/18 18:00 Urine WBC 5-10 /hpf (0-3) H 03/02/18 18:00 Ur Epithelial Cells NONE SEEN /lpf (NONE-1+) 03/02/18 18:00 Urine Bacteria TRACE /hpf (NONE SEEN) H 03/02/18 18:00 Ur Random Creatinine 53.7 mg/dL 03/02/18 18:00 Ur Random Sodium 48 mEq/L (30-90) 03/02/18 18:00 Ur Random Urea Nitrogn 369.0 mg/dL 03/02/18 18:00 Urine Glucose NEGATIVE (NEGATIVE) 03/02/18 18:00 Assessment & Plan Assessment: Acute renal failure (ARF) (Acute) Plan: Patient seen and evaluated independently, please see separate note for further details. Agree with BIENVENIDO Larsen's assessment and plan as outlined above.
[2018-03-02] MEDS: hydrALAZINE 20 MG/ML VIAL IVP PRN (19:46)
--- NOTE | 2018-03-02 22:03 | HOSPPROG ---
Hospitalist Progress Note Assessment/Plan: Patient seen and evaluated independently, care plan reviewed with BIENVENIDO Larsen, please see her H&P for further details. 57 yo M with PMH of melanoma recently undergoing treatment with nivolumab and sent to ER for further evaluation from nephrology for concerns of mima # MIMA on CKD: with prior baseline creatinine of 1.5 and currently elevated to 5.9. Patient reports increased frequency of urination but denies other changes including decreased urine output. FENa calculated at 3.68%, bladder scan was 100ml and renal US pending. Discussed with renal, etiology at this point unclear. Some reports of nephrotoxicity associated with nivolumab, specifically immune mediated/autoimmune nephritis though in discussion with renal and oncology both think this is unlikely. Patient did previously take relatively high doses of NSAIDS but states he has not been taking recently. Will provide gentle IVF overnight, renal us with dopplers pending, renal to consult in am. No indication for urgent HD at this time. # hypertensive urgency: in the setting of above though overall patient does not appear grossly volume overloaded, will get echo in am, started on hydralazine IVP and has been trending down, continue to monitor # melanoma: two weeks ago completed course of nivolumab, oncology consulted # hx of hypothyroid, migraine MEDINA--continue op management IP status, will require > 48 hours stay for eval/mgmt of above Patient new to my care. Old records reviewed and summarized as above, care plan reviewed with ER doctor/BIENVENIDO Larsen. Objective: Vital Signs Temp Pulse Resp BP Pulse Ox 36.9 C 67 18 170/105 H 97 03/02/18 19:29 03/02/18 19:29 03/02/18 19:29 03/02/18 19:46 03/02/18 19:29 ICD10 Worksheet Patient Problems: Problems Problem Status Onset Arthritis of knee Acute Acute renal failure (ARF) Acute
[2018-03-03] MEDS: NS 1,000 ML IV SCH (01:47)
[2018-03-03] MEDS: hydrALAZINE 20 MG/ML VIAL IVP PRN (04:34)
[2018-03-03 05:16] LABS: PLATELET COUNT 428 10^3/uL (150-400)
[2018-03-03] MEDS ORDERED: PANTOPRAZOLE SODIUM 40 MG TAB PO SCH (06:00)
[2018-03-03] MEDS: METOPROLOL SUCCINATE XR 25 MG TAB PO SCH (06:18)
[2018-03-03] MEDS: LEVOTHYROXINE 50 MCG TAB PO SCH (06:18)
--- NOTE | 2018-03-03 09:05 | PDMN ---
Medical Necessity Medical necessity: MCG: M326 acute renal failure 3 days: 3 fold rise in serum Cr. from baseline, BUN 58/ Cr 5.9, 61, 5.7, HTN, renal US pend., renal consult pend., PMH melanoma currently undergoing tx. with Nivolumab., hx hypothyroid, migraine, anticipate > 2 MN ongoing med nec care further tx and eval.
[2018-03-03] MEDS: ACETAMINOPHEN 325 MG TAB PO PRN (09:18)
--- NOTE | 2018-03-03 10:06 | ASMTCMCOM ---
CM Note CM Note Notes: Spoke w/RN, pt admitted to hospital for rich, uncertain if caused by medication. Pt is otherwise independent, will dc home when medically stable, CM available for any changes. DC Plan: Independent Date Signed: 03/03/2018 10:05 AM Electronically Signed By:Brigette Guadalupe RN
[2018-03-03] MEDS: SODIUM BICARBONATE 650 MG TAB PO SCH ×2 (11:30→21:22)
[2018-03-03] MEDS: predniSONE 20 MG TAB PO SCH (11:30)
[2018-03-03 12:22] LABS: INR 1.16 (0.83-1.16)
--- NOTE | 2018-03-03 12:28 | GCON ---
NEPHROLOGY CONSULTATION DATE OF CONSULTATION: 03/03/2018 REASON FOR CONSULTATION: Acute kidney injury. HISTORY OF PRESENT ILLNESS: This is a very pleasant 57-year-old male with a past medical history sig nificant for known malignant melanoma and chronic kidney disease, with a baseline creatinine in the m id 1s, who now presents with a markedly increased creatinine level. History is obtained from the [facility] staff, the medical record, and the patient. The patient is an excellent historian. The patient was first diagnosed with melanoma in 2014. He initially had surgical resection but was t hen found to have metastatic disease in a lymph node in 2016. At that time, he started the biologic agent nivolumab. He has received that ongoing since that time. The patient does have systemic infla mmatory symptoms that cause significant myalgias. Because of this, the patient had been taking signi ficant amounts of nonsteroidal medications. However, his creatinine began elevating a little bit mor e in October of this year, and he was advised to discontinue this medication. He states he has only azra en 2 or 3 small doses of ibuprofen since that time. The patient has had a history of reflux. In jacqueline roximately July of this year, he did begin taking a proton pump inhibitor and has remained on this. The patient's creatinine increased a bit more, up to 1.7, in January. Because of this, he was referr ed for a nephrology evaluation. He was seen by my partner, Dr. Staley, on the . At that ti oh, repeat laboratory studies were drawn. His creatinine returned in the 5s. A followup study was s imilarly elevated. He was then referred for admission. Here in the hospital, the patient's creatinine has peaked at 5.9. He appears to be nonoliguric. His blood pressure is stable. A renal ultrasound did not show evidence of hydronephrosis, and he did no t have a significant postvoid residual. His urinalysis was remarkable for 1-3 red blood cells per hi gh-power field and 5-10 white blood cells per high-power field. A fractional excretion of sodium was not low. His urine protein was negative. As related to the above findings, we are asked by the [facility] service to assist the patient's renal diagnosis and management. HOME MEDICATIONS: Vitamin D 10,000 units daily; levothyroxine 50 mcg daily; metoprolol succinate 25 mg daily; Tylenol p.r.n.; omeprazole 40 mg daily; nivolumab q.2 weeks. PAST MEDICAL HISTORY: 1. Metastatic melanoma with a positive left femoral lymph node. 2. Hypothyroidism. 3. Osteoarthritis. 4. Obstructive sleep apnea, on CPAP. 5. GERD. 6. Chronic migraines. 7. Hypertension. 8. Irregular heartbeat. 9. Depression. SURGICAL HISTORY: 1. Left knee surgery x3. 2. Lymph node biopsy. 3. Melanoma surgery. FAMILY HISTORY: Positive for cancer and Crohn disease. SOCIAL HISTORY: The patient grew up in [place] and [place]. He has lived in a variety of [facility]. He presently lives near [place]. He is . He has 2 children in good health. 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 He does not smoke cigarettes. He drinks at least 3 alcoholic drinks per day. REVIEW OF SYSTEMS: He denies fevers, chills, or sweats. He does have some malaise. He has chronic migraine headaches. He denies visual disturbances. He does not have rhinitis or sore throat. He de nies shortness of breath or cough. He denies chest pain or palpitations. He has not had any signifi cant abdominal pain, constipation, or diarrhea. He has noted an increased recent urinary frequency. He has to urinate 2-3 times at night. He typically had only had to urinate once a night. He does n ot have dysuria. He denies lower extremity edema. He denies numbness in his fingers or toes. He de nies skin rashes or skin lesions at present. He has a history of melanoma. There is no history of d iabetes. He does have hypothyroidism. PHYSICAL EXAM: GENERAL: At time of exam, the patient is appropriate and alert. VITAL SIGNS: [place] rature 36.8, pulse 67, blood pressure 123/62. EYES: Sclerae clear. OROPHARYNX: Clear. NECK: No lymphadenopathy or thyromegaly. LUNGS: Clear auscultation bilaterally. CARDIOVASCULAR: Rate and r hythm with a systolic murmur noted. ABDOMEN: Mildly obese, nontender. No organomegaly. : Defer red. RECTAL: Deferred. EXTREMITIES: Trace pedal edema is noted. INTEGUMENT: Generally clear. N EURO: There are no focal findings. LABORATORY STUDIES: White count 8.9, hematocrit 34.9, platelets 428. Sodium 139, potassium 5, bicar b 18, creatinine 5.7, calcium 8.9, phosphorus 6.2. IMPRESSION AND PLAN: 1. Acute kidney injury. The patient has had a baseline creatinine in the 1.5-1.7 recently. He now has a rather sudden increase, at most of 1 month's duration, up to the 5s. He appears nonoliguric. His volume status is relatively stable at the present time. Based on his history, I can only find ev idence of his proton pump inhibitor or his biologic agent as potential etiologic agents. The patient 's biologic agent has been known to rarely cause an immune-mediated nephritis. It is recommended to begin corticosteroids in such circumstances. a. I did review the above issues with the patient. At this point, we are going to begin empiric pre dnisone 60 mg daily. In talking to Dr. Arvizu of oncology, if we do further document the immune-me diated nephritis, then is recommend to give him prednisolone three times daily along with intravenous immunoglobulin. We will perform a renal biopsy, and I expect results to come back quite soon. b. I did review with the patient the possibility of needing dialysis. There are no urgent indicatio ns at present. He is being started on sodium bicarbonate. He will be on a potassium-restricted diet . His volume status appears stable and his blood pressure is okay. All the patient's questions were answered. 2. Hyperphosphatemia. We will begin calcium carbonate with meals. 3. Vitamin D therapy. The patient appears to be on quite high vitamin D therapy. However, his calc ium phosphorus product is not extremely high. His current calcium levels are fine. His vitamin D wi ll be discontinued. Thank you for allowing us to participate in this gentleman's care. We will continue following him cl osely with you. /[id number]/MODL
--- NOTE | 2018-03-03 14:43 | ECHO ---
[email or web address] [address] [address] Main: [phone] Fax: Transthoracic Echocardiogram Name: ASHLEY OSBORN MR#: [id number] Study Date: 03/03/2018 Study Time: 08:52 AM Date of : 1960 Age: 57 year(s) Height: 180.3 cm (71 in.) Weight: 117.94 kg (260 lb.) BSA: 2.36 m2 Gender: Male Examination: Echo Indication: renal failure, Hypertension Image Quality: Technically Difficult Contrast: Requested by: Sukumar Quevedo BP: 123 mmHg/62 mmHg Heart Rate: Rhythm: Indication: renal failure, Hypertension Procedure Staff Flanging Roll Operator: Latrice Mora [facility] Reading Physician: Kacie Lowry MD Requesting Provider: Conclusions: Normal size left ventricle. Mild concentric LV hypertrophy. Normal global systolic LV function. The ejection fraction is visually estimated to be 60 %. No regional wall motion abnormality. Normal diastolic LV function. Normal size right ventricle. Normal RV function. Valves are not well seen on 2D imaging. No significant valvular disease based on color Doppler or spectral Doppler. No prior echo Measurements: Chambers Valvular Assessment AV/MV Valvular Assessment TV/PV Normal Normal Normal Name Value Range Name Value Range Name Value Range Ao Michelle (2D): 3.2 cm (1.4 cm-2.6 AV Vmax: 1.46 m/s (1 m/s-1.7 PV Vmax: 0.83 m/s (0.6 m/s-0.9 cm) m/s) m/s) IVSd (2D): 1.2 cm (0.6 cm-1.1 AV maxP mmHg ( - ) PV PGmax: 3 mmHg ( - ) cm) AV meanP mmHg ( - ) LVDd (2D): 4.4 cm (4.2 cm-5.9 RICKEY (VTI): 3.4 cm ( - ) cm) MV E Vmax: 0.95 m/s ( - ) LVDs (2D): 2.6 cm (2.1 cm-4 MV A Vmax: 1.00 m/s ( - ) cm) MV E/A: 0.95 ( - ) LVPWd (2D): 1.0 cm (0.6 cm-1 cm) MV PHT: 0.074 s ( - ) LVOTd 2.3 cm 2.3 cm mm MVA (PHT): 3.0 s ( - ) Visual EF: 60 % RVDd(2D): 3.6 cm (1.9 cm-3.8 cmmm) Patient: ASHLEY OSBORN Study Date: 03/03/2018 Page 1 of 2 08:52 AM Continued Measurements: Chambers Valvular Assessment AV/MV Name Value Name Value LADs: 3.4 cm MV DecTime: 264 m/s LADs Lon.4 cm MV E' Septal: 0.11 m/s LA Area: 15.8 cm2 MV E/E' Septal: 8.30 LA Volume: 38 ml MV E/E' Lateral: 11.20 LA Volume Index: 16.1 ml/m2 Additional Vessels Name Value Ao Ascendin.1 cm Inferior Vena Cava: 1.8 cm Findings: Left Ventricle: Normal size left ventricle. Mild concentric LV hypertrophy. Normal global systolic LV function. The ejection fraction is visually estimated to be 60 %. No regional wall motion abnormality. Normal diastolic LV function. Right Ventricle: Normal size right ventricle. Normal RV function. Left Atrium: The left atrium is normal in size. Right Atrium: The right atrium is normal in size. Mitral Valve: The mitral valve is normal in appearance and function. Trivial mitral valve regurgitation. Technically difficult evaluation of mitral regurgitation due to suboptimal imaging. Aortic Valve: The aortic valve is tri-leaflet. There is no significant aortic valve regurgitation. No aortic valve stenosis is present. Tricuspid Valve: The tricuspid valve is normal in appearance and function. Technically difficult imaging of tricuspid valve and tricuspid regurgitation due to suboptimal imaging. Pulmonic Valve: Pulmonary valve not well visualized. Aorta: The aorta is normal. Normal size aortic root measuring 3.2 cm. Normal size ascending aorta measuring 3.1 cm. IVC: The IVC is normal sized. Pericardium: No pericardial effusion. No pleural effusion. Exam Comments: (No Signature Object) Patient: ASHLEY OSBORN Study Date: 03/03/2018 Page 2 of 2 08:52 AM [id number]
[2018-03-03] MEDS: CALCIUM CARBONATE 500 MG CHEWABLE TAB PO SCH ×2 (15:14→21:21)
--- NOTE | 2018-03-03 16:01 | HOSPPROG ---
Hospitalist Progress Note Assessment/Plan: The patient is a 57-year-old male with PMH metastatic melanoma on immunotherapy who was admitted for acute renal failure. This patient is new to me. Reviewed patient's chart/records for this visit. ASSESSMENT/PLAN: MIMA on CKD, baseline creatinine 1.5 History of metastatic melanoma, in remission, on immunotherapy Accelerated HTN, improved NAGMA Hypothyroidism Osteoarthritis Obstructive sleep apnea, on CPAP -Discussed w/ Nephrology. Kidney biopsy in AM. For now, bicarb pushes and steroids for presumed inflammatory process. -prn hydralazine. Maintain normotension. -No IVF as pt is euvolemic. -Oncology and Nephrology recs appreciated. -Continue other home meds. No immunotherapy in case ARF is an AE of it. VTE prophylaxis: Ambulatory. SCDs. Code Status: Full code Status: Inpatient for greater than 2 midnight stay. Disposition: Med surg ____ SUBJECTIVE: The patient feels well. OBJECTIVE: Physical Exam: General: The patient is a male who is alert and in no acute distress. HEENT: normocephalic, extraocular movements intact, conjunctivae clear. Mucous membranes moist. Neck: trachea midline, no visible masses. Abd: soft and nondistended. Musculoskeletal: Normal muscle tone/bulk. Neuro: cranial nerves II XII grossly intact. Intact gross motor and sensory function. Psych: Appropriate mood and appropriate affect. Skin: No pallor. No petechiae. Heme/lymph: No peripheral edema at bilateral lower extremities. Labs/Imaging/Other Tests: Personally reviewed/interpreted. Renal ultrasound- 1. No hydronephrosis, renal atrophy, or perinephric fluid. 2. Postvoid bladder residual 33 mL. 3. No definite evidence of renal artery stenosis. 4. Abnormal resistive indices consistent with the patient's acute renal failure. TTE: WNL. Mild LVH. Objective: Vital Signs Temp Pulse Resp BP Pulse Ox 36.7 C 71 12 113/72 97 03/03/18 11:58 03/03/18 11:58 03/03/18 11:58 03/03/18 11:58 03/03/18 11:58 Laboratory Results 03/03/18 04:20 03/03/18 04:20 03/02/18 03/03/18 03/04/18 05:59 05:59 05:59 Intake Total 500 Balance 500 PT 15.0 SEC (12.0-15.0) 03/03/18 11:13 INR 1.16 (0.83-1.16) 03/03/18 11:13 - Time Spent With Patient Time Spent with Patient: greater than 35 minutes Time Spent with Patient: Greater than 35 minutes spent on this patients care, greater than 50% of time spent counseling, educating, and coordinating care regarding the above mentioned plan. ICD10 Worksheet Patient Problems: Problems Problem Status Onset Acute renal failure (ARF) Acute Arthritis of knee Acute
--- NOTE | 2018-03-03 18:32 | GCON ---
NEW PATIENT CONSULTATION. REFERRING PHYSICIAN: Sukumar Quevedo MD PRIMARY ONCOLOGIST: Ekta Arvizu MD. REASON FOR CONSULTATION: The patient with stage III melanoma status post adjuvant nivolumab, present s with acute renal failure. HISTORY OF PRESENT ILLNESS: This is a 57-year-old gentleman with past medical history significant fo r chronic migraines who was referred to me in December 2014 for malignant melanoma. Shave biopsy of a pigmented lesion in right lateral knee came back invasive melanoma, 3 mm in size. Margins were in volved. Mitoses 3 per high powered field. Tumor infiltrating lymphocytes were absent, ulceration wa s absent. LVI was absent. Shave biopsy of his right chest pigmented lesion also came back invasive melanoma, 0.6 mm T1a. Margins were again involved by melanoma. No mitoses. No tumor infiltrating l ymphocytes. Ulceration was absent. Micro satellitosis was absent. The patient was subsequently ref erred to Dr. Jacqueline Brito, at [facility] for evaluation and management. Specifically, w maryuri excision of known melanomas, as well as excision of likely melanoma on left side of his thigh. O n evaluation with Dr. Zapata patient had no palpable lymph nodes and otherwise felt well. She describ ed a large 3 cm black irregular lesion on left medial upper thigh. The patient went on to have wide excisions of residual melanoma of right chest and right knee. He also underwent excision of suspicio us lesion in the medial thigh with bilateral sentinel nodes. Fortunately, pathology showed re-excision of right chest and right knee to be negative for malignancy . The excision of the left medial thigh showed a 2 x 5 x 2.3 x 0.9 mm malignant melanoma, negative L or satellite nodules. Ulceration was present. Maximal tumor thickness was 9 mm. Mitotic rate wa s less than 1 per mm squared. Lymphovascular invasion was not identified. It is assumed that the pa tieалександр had 3 primary sites of melanoma. The largest of which was then 9 mm on the left thigh and clas sified him as a IIc without erika involvement. The patient required a skin graft on the left. Other dinh, was healing well. More recently, he was diagnosed with a left inguinal node recurrence of his melanoma about a year ago. This was biopsy proven after an abnormal ultrasound was performed. PET-C T showed no evidence of distant disease. Final path from inguinal node excision showed left groin srinivasan perficial lymph node dissection. Metastatic melanoma to 1 out of 5 left groin lymph nodes. No menti on of extranodal extension or other erika involvement. 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 Most recent PET-CT done 01/12/2018 shows small mildly hypermetabolic right inguinal lymph nodes, nikolai l metastatic disease was not excluded. No additional sites of FDG uptake were identified in chest, a bdomen, pelvis, or bilateral lower extremities. We were planning on evaluating right groin with ultr asound in the near future. The patient completed a full 12 cycles of adjuvant Nivolumab on 02/21/2018. He continues to have mil d myalgias, arthralgias, and fatigue from the treatment, but denied any other new symptoms when he wa s seen on 02/28/2018. I did send him to Nephrology due to a slight increase in his creatinine over t he past year and baseline has been about 1.5 to 1.6, but has been as high as 1.7 to 1.8. I asked him to stop any NSAIDs and control his blood pressure. He is on a low-sodium diet. He was seen by Nephrology earlier in the week as well as by my PA in the office and creatinine was no henok to be acutely elevated up to 4 and 5 and was sent to admission at [facility]. Most recent labs show CBC is essentially stable. His creatinine seems to have peaked at 5.9, is 5.7 today, bicarb 18, anion gap was present on admission at 15. Sodium normal today at 139. LFTs unrema rkable. Phos elevated at 6.2, potassium at 5. Urinalysis: 1+ blood with 1-3 RBCs, 5-10 WBCs, trace bacteria. He had abdominal pelvic ultrasound that showed no hydronephrosis. No renal atrophy or per inephric fluid. No definite evidence of renal artery stenosis. PAST MEDICAL HISTORY: Significant for chronic migraines, left knee surgery, and hypothyroidism as we ll as hypertension. FAMILY HISTORY: Father of lung cancer. Father and brother had pre cancerous skin lesions. SOCIAL HISTORY: Nonsmoker. 3-4 alcoholic drinks daily. 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 SURGICAL HISTORY: As detailed above. PHYSICAL EXAM: VITAL SIGNS: Blood pressure 113/72, heart rate of 62, respiration rate is 12, satura ting 95% on room air, temp is 36.9. HEENT: Anicteric sclerae. Oropharynx is clear. HEART: Regular r ate and rhythm. LUNGS: Clear bilaterally. ABDOMEN: Obese, soft, nontender. LOWER EXTREMITIES: No significant edema. SKIN: No rash. LYMPH: No axillary or inguinal lymphadenopathy noted today. NEUR OLOGIC: Nonfocal. MEDICATIONS: Have been reviewed in the EMR. The patient is on sodium bicarb, metoprolol, levothyrox ine, hydralazine, calcium, and has been started on prednisone 60 daily. ASSESSMENT AND PLAN: A 57-year-old gentleman with stage III melanoma after erika recurrence was disc overed about a year ago, who was on 12 months of adjuvant nivolumab. He presents asymptomatic, nonol iguric with acute renal failure of undetermined etiology. 1. Acute renal failure. Appreciate renal controlling electrolytes and blood pressure. I do agree w ith renal biopsy. He has a baseline creatinine of 1.5 to 1.6. Very rare instances that immunotherap y can cause acute renal failure, nephritis or other. Renal biopsy planned for tomorrow. Currently o n 60 of Prednisone, may need to increase once biopsy results are back with a low threshold for increa sing sooner if creatinine goes up. 2. Stage III melanoma status post adjuvant therapy. We are watching some right inguinal nodes. He will be due for an outpatient ultrasound and/or scans soon. No evidence of retroperitoneal lymphaden opathy or anything compressing the ureters that could be causing an obstructive uropathy. 3. Hypertension, currently well controlled. 4. Other medical issues per Internal Medicine. Will follow along. Appreciate multi disciplinary he lp. More than 30 minutes spent with patient, more than 50% time counseling, coordinating care. /[id number]/MODL
[2018-03-04] MEDS: LEVOTHYROXINE 50 MCG TAB PO SCH (04:29)
[2018-03-04] MEDS: METOPROLOL SUCCINATE XR 25 MG TAB PO SCH (04:29)
[2018-03-04 05:07] LABS: PLATELET COUNT 490 10^3/uL (150-400)
[2018-03-04] MEDS: SODIUM BICARBONATE 650 MG TAB PO SCH ×2 (08:36→21:10)
[2018-03-04] MEDS: CALCIUM CARBONATE 500 MG CHEWABLE TAB PO SCH ×3 (08:37→21:10)
[2018-03-04] MEDS: predniSONE 20 MG TAB PO SCH ×2 (08:37→21:10)
[2018-03-04] MEDS ORDERED: CHOLECALCIFEROL VIT D3 1,000 UNITS TAB PO SCH (09:00)
--- NOTE | 2018-03-04 10:33 | SOAPPROG ---
SOAP Progress Note Assessment/Plan: Assessment/Plan: MIMA: Cr recently had been 1.5, now suddenly up to 5 in a short durtaion, nonoliguric, lytes ok. 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 - No immediate need for HD, will continue to monitor for HD needs daily. - Pt has been started on prednisone 60mg daily empirically, will adjust based on biopsy results. - Pt getting renal biopsy today. - Will continue to monitor closely. - Avoid hypotension and nephrotoxins. Metabolic acidosis: improving with bicarb replacement, will continue to monitor. Hyperphosphatemia: phos 5.8, started on phos binder, will continue to monitor. Anemia: no need for epo at this time, will monitor Hgb closely in setting of renal biopsy. Subjective: No acute events overnight. Pt states that he feels well, urinating normally, no swelling or dyspnea. He did not sleep well last night, mostly from napping yesterday. Objective: Vital Signs Temp Pulse Resp BP Pulse Ox 36.7 C 56 L 20 130/79 H 95 03/04/18 07:17 03/04/18 07:17 03/04/18 07:17 03/04/18 07:17 03/04/18 07:17 Laboratory Results 03/04/18 04:26 03/04/18 09:48 03/03/18 03/04/18 03/05/18 05:59 05:59 05:59 Intake Total 500 500 Balance 500 500 PT 15.0 SEC (12.0-15.0) 03/03/18 11:13 INR 1.16 (0.83-1.16) 03/03/18 11:13 General: alert and oriented, no acute distress Eyes: EOMI, PERRL OP: Clear CV: RRR Resp: nonlabored respirations on RA Abd: Soft, NT/ND Ext: no edema BLE Neuro: CN II-XII Grossly intact, no asterixis Psych: cooperative, appropriate mood and affect ICD10 Worksheet Patient Problems: Problems Problem Status Onset Acute renal failure (ARF) Acute Arthritis of knee Acute
--- NOTE | 2018-03-04 14:01 | SOAPPROG ---
SOAP Progress Note Assessment/Plan: Assessment/Plan: 57 yo gentleman w recent erika recurrence of melanoma (Stage 3) s/p 1 year of adjuvant nivolumab who p/w acute renal failure 1. ARF - nephrology consult appreciated etiology of ARF unclear which makes IO therapy more likely will increase prednisone to 1mg/kg today (joe change to 60mg po BID) Renal bx pending today If grade 2 renal toxicity (Cr 2-3x normal) after one week of steroids and bx confirms immune related toxicity, consider other therapies for immune mediated toxicities: azathioprine, cyclophosphamide, infliximab IVIG has also been used but most data w pulmonary toxicity 2. Stage III melanoma w erika recurrence - completed full year of nivolumab very recently monitor mild PET uptake in R inguinal area - can be done as outpt 3. HTN - monitor on steroids 4. FEN - per renal 5. Anemia - monitor 03/04/18 13:55 03/04/18 13:58 03/04/18 14:03 Subjective: No acute events denies new issues frustrated that biopsy has not been done yet Objective: Vital Signs Temp Pulse Resp BP Pulse Ox 36.7 C 66 18 146/94 H 92 03/04/18 11:22 03/04/18 11:22 03/04/18 11:22 03/04/18 11:22 03/04/18 11:22 Laboratory Results 03/04/18 04:26 03/04/18 09:48 03/03/18 03/04/18 03/05/18 05:59 05:59 05:59 Intake Total 500 500 Balance 500 500 PT 15.0 SEC (12.0-15.0) 03/03/18 11:13 INR 1.16 (0.83-1.16) 03/03/18 11:13 Gen - NAD CV - RRR Chest - CTAB, no sig LE edema Abd - soft, BS+ Skin - without rash ICD10 Worksheet Patient Problems: Problems Problem Status Onset Acute renal failure (ARF) Acute Arthritis of knee Acute
[2018-03-04] MEDS ORDERED: NALOXONE HCL 0.4 MG/ML INJ ONE (14:50)
[2018-03-04] MEDS ORDERED: fentaNYL 100 MCG/2 ML INJ ONE (14:51)
[2018-03-04] MEDS ORDERED: MIDAZOLAM 2 MG/2 ML VIAL ONE (14:51)
[2018-03-04] MEDS ORDERED: FLUMAZENIL 0.5 MG/5 ML MDV IVP ONE (14:51)
[2018-03-04] MEDS ORDERED: LIDOCAINE 1% 300 MG/30 ML SDV ONE (14:59)
[2018-03-04] MEDS: NS 1,000 ML IV SCH (15:37)
[2018-03-04] MEDS ORDERED: fentaNYL 100 MCG/2 ML INJ IVP PRN (15:40)
[2018-03-04] MEDS ORDERED: FLUMAZENIL 0.5 MG/5 ML MDV IVP PRN (15:40)
[2018-03-04] MEDS ORDERED: MEPERIDINE 25 MG/ML SYR IVP PRN (15:40)
[2018-03-04] MEDS ORDERED: hydrALAZINE 20 MG/ML VIAL IVP PRN (15:40)
[2018-03-04] MEDS ORDERED: NALOXONE HCL 0.4 MG/ML INJ IVP PRN (15:40)
[2018-03-04] MEDS ORDERED: MIDAZOLAM 2 MG/2 ML VIAL IVP PRN (15:40)
[2018-03-04] MEDS ORDERED: NS 1,000 ML IV SCH (15:45)
--- NOTE | 2018-03-04 15:52 | HOSPPROG ---
Hospitalist Progress Note Assessment/Plan: The patient is a 57-year-old male with PMH metastatic melanoma on immunotherapy who was admitted for acute renal failure. ASSESSMENT/PLAN: MIMA on CKD, baseline creatinine 1.5 History of metastatic melanoma, in remission, on immunotherapy Accelerated HTN, improved NAGMA Hypothyroidism Osteoarthritis Obstructive sleep apnea, on CPAP -FU biopsy results. -bicarb pushes and steroids for presumed inflammatory process. -prn hydralazine. Maintain normotension. -No IVF as pt is euvolemic. -Oncology and Nephrology recs appreciated. -Continue other home meds. No immunotherapy in case ARF is an AE of it. -Check AM labs. VTE prophylaxis: Ambulatory. SCDs. Code Status: Full code Status: Inpatient for greater than 2 midnight stay. Disposition: Med surg ____ SUBJECTIVE: Pt feels well, was irritated about delay of his biopsy. OBJECTIVE: Physical Exam: General: The patient is a male who is alert and in no acute distress. HEENT: normocephalic, extraocular movements intact, conjunctivae clear. Mucous membranes moist. Neck: trachea midline, no visible masses. Abd: soft and nondistended. Musculoskeletal: Normal muscle tone/bulk. Neuro: cranial nerves II XII grossly intact. Intact gross motor and sensory function. Psych: Appropriate mood and appropriate affect. Skin: No pallor. No petechiae. Heme/lymph: trace pitting peripheral edema at bilateral ankles. Labs/Imaging/Other Tests: Personally reviewed/interpreted. Renal ultrasound- 1. No hydronephrosis, renal atrophy, or perinephric fluid. 2. Postvoid bladder residual 33 mL. 3. No definite evidence of renal artery stenosis. 4. Abnormal resistive indices consistent with the patient's acute renal failure. TTE: WNL. Mild LVH. Objective: Vital Signs Temp Pulse Resp BP Pulse Ox 37.0 C 68 18 158/89 H 98 03/04/18 14:04 03/04/18 15:15 03/04/18 15:15 03/04/18 15:15 03/04/18 15:15 Laboratory Results 03/04/18 04:26 03/04/18 09:48 03/03/18 03/04/18 03/05/18 05:59 05:59 05:59 Intake Total 500 500 Balance 500 500 PT 15.0 SEC (12.0-15.0) 03/03/18 11:13 INR 1.16 (0.83-1.16) 03/03/18 11:13 ICD10 Worksheet Patient Problems: Problems Problem Status Onset Acute renal failure (ARF) Acute Arthritis of knee Acute
[2018-03-04] MEDS: hydrALAZINE 20 MG/ML VIAL IVP PRN (16:06)
--- NOTE | 2018-03-04 16:07 | PDPROPOC ---
Sedation Plan of Care Sedation Plan of Care: mental status noted ASA Classification: ASA 3 Planned drugs: fentanyl, midazolam Mallampati Score: Class 2 Mallampati Reference Image: Patient passed 3-3-2 rule?: Yes
--- NOTE | 2018-03-04 16:07 | PDHPUP ---
History & Physical Update H&P update statement: This history and physical update is based on an assessment of the patient which was completed after admission or registration (within 24 hours), but prior to the surgery/procedure. Renal biopsy H&P update: H&P reviewed & patient examined, no change in patient's condition since H&P completed
--- NOTE | 2018-03-04 16:09 | PDRADPN ---
Radiology Procedure Note Date of Procedure: 03/04/18 Radiologist: Varun Dang Anesthesia: IV Sedation Pre-op Diagnosis: Renal failure Post-op Diagnosis: Renal failure Indication: Renal failure Procedure: US guided renal biopsy Finding(s): Two 18 ga cores per protocol left kidney. Inf/Abcess present in the surg proc area at time of surgery?: No
[2018-03-04] MEDS: ACETAMINOPHEN 325 MG TAB PO PRN (18:01)
[2018-03-05] MEDS: METOPROLOL SUCCINATE XR 25 MG TAB PO SCH (05:13)
[2018-03-05] MEDS: LEVOTHYROXINE 50 MCG TAB PO SCH (05:16)
[2018-03-05 05:38] LABS: PLATELET COUNT 513 10^3/uL (150-400)
[2018-03-05] MEDS ORDERED: SODIUM POLY SULF 15 GM/60 ML BOTTLE PO ONE (06:42)
--- NOTE | 2018-03-05 08:03 | SOAPPROG ---
SOAP Progress Note Assessment/Plan: Assessment: SOAP Progress Note Assessment/Plan: Assessment/Plan: 57 yo gentleman w recent erika recurrence of melanoma (Stage 3) s/p 1 year of adjuvant nivolumab who p/w acute renal failure 1. ARF -s/p renal biopsy yesterday. 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 If grade 2 renal toxicity (Cr 2-3x normal) after one week of steroids and bx confirms immune related toxicity, consider other therapies for immune mediated toxicities: azathioprine, cyclophosphamide, infliximab IVIG has also been used but most data w pulmonary toxicity 2. Hyperkalemia-received kayxelate this morning. 2. Stage III melanoma w erika recurrence - completed full year of nivolumab recently monitor mild PET uptake in R inguinal area - can be done as outpt 3. HTN - monitor on steroids 4. FEN - per renal 5. Anemia - monitor 6. DVT prophylaxis-? sq heparin. will discuss with hospitalist. 7. Gastritis prophylaxis-on high dose steroids. Will discuss with hospitalist in light of renal failure. 03/05/18 08:23 Subjective: no new symptoms, no apparent side effects from high dose pred Objective: Vital Signs Temp Pulse Resp BP Pulse Ox 36.4 C 64 16 151/90 H 96 03/05/18 04:00 03/05/18 05:13 03/05/18 04:00 03/05/18 05:13 03/05/18 04:00 Laboratory Results 03/05/18 04:24 03/05/18 04:24 03/04/18 03/05/18 03/06/18 05:59 05:59 05:59 Intake Total 500 1000 Balance 500 1000 PT 15.0 SEC (12.0-15.0) 03/03/18 11:13 INR 1.16 (0.83-1.16) 03/03/18 11:13 Physical Exam - Physical Exam General Appearance: alert, no apparent distress Neck: supple Respiratory: lungs clear Abdomen: non-tender, soft Extremities: No pedal edema ICD10 Worksheet Patient Problems: Problems Problem Status Onset Acute renal failure (ARF) Acute Arthritis of knee Acute
[2018-03-05] MEDS: predniSONE 20 MG TAB PO SCH ×2 (08:05→20:20)
[2018-03-05] MEDS: SODIUM BICARBONATE 650 MG TAB PO SCH ×2 (08:06→20:20)
[2018-03-05] MEDS: CALCIUM CARBONATE 500 MG CHEWABLE TAB PO SCH ×3 (08:06→22:43)
[2018-03-05 09:34] LABS: CREATINE KINASE 52 IU/L (0-224)
--- NOTE | 2018-03-05 13:47 | HOSPPROG ---
Hospitalist Progress Note Assessment/Plan: The patient is a 57-year-old male with PMH metastatic melanoma on immunotherapy who was admitted for acute renal failure. Likely etiology for his renal failure is the immune therapy however a renal biopsy has been done with results pending # acute on chronic renal failure with a baseline creatinine of 1.5 currently at 5.4 * Await biopsy results * Continue to monitor potassium and creatinine * Appreciate Nephrology * Currently on high-dose prednisone, consider adding GI prophylaxis # metastatic melanoma in remission had been on immunotherapy. Appreciate Oncology follow-up * Stage III melanoma with erika recurrence, completed full year of nivolumab recently * Follow-up in right inguinal area per PET can be done as outpatient * Further therapy per Oncology # hyperkalemia, received Kayexalate this morning will continue to monitor I suspect it will start to improve as well # anemia, follow # DVT prophylaxis, patient high risk given his cancer will add subcu heparin continue SCDs # GI prophylaxis given high-dose steroids Subjective: Patient new to me and chart reviewed. Frustrated because he has to wait for the test results however currently feels good and urinating Objective: Vital Signs Temp Pulse Resp BP Pulse Ox 36.6 C 66 16 135/88 H 94 03/05/18 11:30 03/05/18 11:30 03/05/18 11:30 03/05/18 11:30 03/05/18 11:30 Laboratory Results 03/05/18 04:24 03/05/18 04:24 03/04/18 03/05/18 03/06/18 05:59 05:59 05:59 Intake Total 500 1000 Output Total 280 Balance 500 1000 -280 PT 15.0 SEC (12.0-15.0) 03/03/18 11:13 INR 1.16 (0.83-1.16) 03/03/18 11:13 - Physical Exam Constitutional: no apparent distress Eyes: PERRL Ears, Nose, Mouth, Throat: moist mucous membranes Cardiovascular: regular rate and rhythym, no murmur, rub, or gallop Respiratory: no respiratory distress, clear to auscultation Gastrointestinal: soft, non-tender abdomen Skin: warm, normal color Musculoskeletal: full muscle strength Neurologic: AAOx3 Psychiatric: interacting appropriately ICD10 Worksheet Patient Problems: Problems Problem Status Onset Acute renal failure (ARF) Acute Arthritis of knee Acute
[2018-03-05] MEDS: HEPARIN 5,000 UNIT/0.5 ML INJ SC SCH ×2 (14:48→22:43)
[2018-03-05] MEDS: FAMOTIDINE 20 MG TAB PO SCH (14:48)
--- NOTE | 2018-03-05 16:32 | SOAPPROG ---
SOAP Progress Note Assessment/Plan: Assessment: MIMA on CKD3 -baseline Cr 1.5 -s/p renal biopsy 03/04- tolerated well, anticipate results early next week -Cr slightly improved -continue empiric steroids given suspected biologic induced nephritis -No HD indications currently Hyperkalemia -ensure low K diet- I reviewed with him -recheck now to ensure stable HTN -monitor, can use hydralazine if SBP >160 -volume status ok Metabolic acidosis -bicarb stable 19, continue supplement Metastatic melanoma Ai Garzon MD [facility] pager [phone] 03/05/18 18:04 03/05/18 18:06 Subjective: Feels well. No n/v, sob. TOlerated biopsy well- no hematuria, flank pain. Eating well. Objective: Vital Signs Temp Pulse Resp BP Pulse Ox 36.5 C 69 16 160/88 H 92 03/05/18 15:38 03/05/18 15:38 03/05/18 15:38 03/05/18 15:38 03/05/18 15:38 Laboratory Results 03/05/18 04:24 03/05/18 04:24 03/04/18 03/05/18 03/06/18 05:59 05:59 05:59 Intake Total 500 1000 Output Total 280 Balance 500 1000 -280 PT 15.0 SEC (12.0-15.0) 03/03/18 11:13 INR 1.16 (0.83-1.16) 03/03/18 11:13 Physical Exam - Physical Exam General Appearance: alert, no apparent distress EENT: other (mmm) Neck: supple Respiratory: chest non-tender, lungs clear Cardiac/Chest: regular rate, rhythm, other (no rub) Abdomen: normal bowel sounds, non-tender, soft Back: Other (no hematoma at biopsy site) Skin: warm/dry Extremities: other (no edema) Neuro/Psych: alert, oriented x 3 ICD10 Worksheet Patient Problems: Problems Problem Status Onset Acute renal failure (ARF) Acute Arthritis of knee Acute
[2018-03-06 05:29] LABS: PLATELET COUNT 460 10^3/uL (150-400)
[2018-03-06] MEDS: METOPROLOL SUCCINATE XR 25 MG TAB PO SCH (05:41)
[2018-03-06] MEDS: LEVOTHYROXINE 50 MCG TAB PO SCH (05:44)
[2018-03-06] MEDS: HEPARIN 5,000 UNIT/0.5 ML INJ SC SCH ×3 (05:44→21:01)
[2018-03-06] MEDS: FAMOTIDINE 20 MG TAB PO SCH (08:33)
[2018-03-06] MEDS: CALCIUM CARBONATE 500 MG CHEWABLE TAB PO SCH ×3 (08:34→21:00)
[2018-03-06] MEDS: predniSONE 20 MG TAB PO SCH ×2 (08:34→21:00)
[2018-03-06] MEDS: SODIUM BICARBONATE 650 MG TAB PO SCH ×2 (08:34→21:00)
--- NOTE | 2018-03-06 14:41 | HOSPPROG ---
Hospitalist Progress Note Assessment/Plan: The patient is a 57-year-old male with PMH metastatic melanoma on immunotherapy who was admitted for acute renal failure. Likely etiology for his renal failure is the immune therapy however a renal biopsy has been done with results pending # acute on chronic renal failure with a baseline creatinine of 1.5 currently at 4.6 * Await biopsy results * Continue to monitor potassium and creatinine * Appreciate Nephrology * Currently on high-dose prednisone, added pepcid for GI proph # metastatic melanoma in remission had been on immunotherapy. Appreciate Oncology follow-up * Stage III melanoma with erika recurrence, completed full year of nivolumab recently * Follow-up in right inguinal area per PET can be done as outpatient * Further therapy per Oncology # hyperkalemia, improved today # anemia, follow # DVT prophylaxis, patient high risk given his cancer will add subcu heparin continue SCDs # GI prophylaxis given high-dose steroids Subjective: doing well, no complaints Objective: Vital Signs Temp Pulse Resp BP Pulse Ox 36.4 C 55 L 16 150/87 H 95 03/06/18 11:40 03/06/18 11:40 03/06/18 11:40 03/06/18 11:40 03/06/18 11:40 Laboratory Results 03/06/18 04:19 03/06/18 04:19 03/05/18 03/06/18 03/07/18 05:59 05:59 05:59 Intake Total 1000 Output Total 280 Balance 1000 -280 PT 15.0 SEC (12.0-15.0) 03/03/18 11:13 INR 1.16 (0.83-1.16) 03/03/18 11:13 - Physical Exam Constitutional: no apparent distress Cardiovascular: regular rate and rhythym Respiratory: no respiratory distress, clear to auscultation Neurologic: AAOx3 ICD10 Worksheet Patient Problems: Problems Problem Status Onset Arthritis of knee Acute Acute renal failure (ARF) Acute
--- NOTE | 2018-03-06 17:59 | SOAPPROG ---
SOAP Progress Note Assessment/Plan: Assessment: MIMA on CKD3- non-oliguric -baseline Cr 1.5 -s/p renal biopsy 03/04- tolerated well, anticipate results tomorrow or tues. hct stable post procedure -Cr improving- down to 4.6, good UOP -continue empiric steroids given suspected biologic induced nephritis -No HD indications currently Hyperkalemia -continue low K diet -K stable on last checks HTN -monitor, can use hydralazine if SBP >160 -volume status ok Metabolic acidosis -bicarb stable continue supplement Metastatic melanoma I discussed with oncology Ai Garzon MD [facility] pager [phone] 03/06/18 18:30 Subjective: Feels well, happy to hear his Cr is improving. No hematuria, flank pain, dizziness. Eating well. Hoping to hear results of bx soon. Objective: Vital Signs Temp Pulse Resp BP Pulse Ox 36.6 C 53 L 14 155/82 H 95 03/06/18 15:26 03/06/18 15:26 03/06/18 15:26 03/06/18 15:26 03/06/18 11:40 Laboratory Results 03/06/18 04:19 03/06/18 04:19 03/05/18 03/06/18 03/07/18 05:59 05:59 05:59 Intake Total 1000 Output Total 280 Balance 1000 -280 PT 15.0 SEC (12.0-15.0) 03/03/18 11:13 INR 1.16 (0.83-1.16) 03/03/18 11:13 Physical Exam - Physical Exam General Appearance: alert, no apparent distress EENT: other (mmm) Cardiac/Chest: regular rate, rhythm Skin: warm/dry Extremities: other (no edema) Neuro/Psych: alert, oriented x 3 ICD10 Worksheet Patient Problems: Problems Problem Status Onset Acute renal failure (ARF) Acute Arthritis of knee Acute
--- NOTE | 2018-03-06 18:51 | SOAPPROG ---
SOAP Progress Note Assessment/Plan: Assessment: SOAP Progress Note Assessment/Plan: Assessment/Plan: 57 yo gentleman w recent erika recurrence of melanoma (Stage 3) s/p 1 year of adjuvant nivolumab who p/w acute renal failure 1. ARF -s/p renal biopsy wednesday. 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 creat better today. prelim biopsy results possibly tomorrow 2. Hyperkalemia-resolved. 2. Stage III melanoma w erika recurrence - completed full year of nivolumab recently monitor mild PET uptake in R inguinal area - can be done as outpt 3. HTN - monitor on steroids 4. FEN - per renal 5. Anemia - monitor 6. DVT prophylaxis- sq heparin. Subjective: feels well Objective: Vital Signs Temp Pulse Resp BP Pulse Ox 36.6 C 53 L 14 155/82 H 95 03/06/18 15:26 03/06/18 15:26 03/06/18 15:26 03/06/18 15:26 03/06/18 11:40 Laboratory Results 03/06/18 04:19 03/06/18 04:19 03/05/18 03/06/18 03/07/18 05:59 05:59 05:59 Intake Total 1000 Output Total 280 Balance 1000 -280 PT 15.0 SEC (12.0-15.0) 03/03/18 11:13 INR 1.16 (0.83-1.16) 03/03/18 11:13 Physical Exam - Physical Exam General Appearance: WD/WN, alert Respiratory: lungs clear Extremities: No pedal edema ICD10 Worksheet Patient Problems: Problems Problem Status Onset Acute renal failure (ARF) Acute Arthritis of knee Acute
[2018-03-07 05:27] LABS: PLATELET COUNT 431 10^3/uL (150-400)
[2018-03-07] MEDS: LEVOTHYROXINE 50 MCG TAB PO SCH (05:58)
[2018-03-07] MEDS: METOPROLOL SUCCINATE XR 25 MG TAB PO SCH (05:58)
[2018-03-07] MEDS: HEPARIN 5,000 UNIT/0.5 ML INJ SC SCH ×3 (05:59→21:09)
[2018-03-07] MEDS: CALCIUM CARBONATE 500 MG CHEWABLE TAB PO SCH ×3 (08:05→21:08)
[2018-03-07] MEDS: SODIUM BICARBONATE 650 MG TAB PO SCH ×2 (08:05→21:08)
[2018-03-07] MEDS: FAMOTIDINE 20 MG TAB PO SCH (08:06)
[2018-03-07] MEDS: predniSONE 20 MG TAB PO SCH ×2 (08:06→21:08)
[2018-03-07] MEDS ORDERED: ALBUMIN 25% 50 ML IV ONE (09:00)
[2018-03-07] MEDS ORDERED: FUROSEMIDE 40 MG/4 ML VIAL IVP SCH (09:00)
--- NOTE | 2018-03-07 12:29 | SOAPPROG ---
SOAP Progress Note Assessment/Plan: Assessment/Plan: MIMA on CKD3- non-oliguric -baseline Cr 1.5, up to >5mg/dL on admission -s/p renal biopsy 03/04 -contacted Joyce Garcia who just received the specimen this am so will have results tomorrow -Cr improving- down to 3.8 with good UO -continue empiric steroids given suspected biologic induced nephritis -No HD indications currently Hyperkalemia -continue low K diet -monitoring HTN -BP up to 170's today -volume status ok, will add amlodipine 5mg daily -continue metoprolol home dose and hydralazine prn Metabolic acidosis -bicarb stable continue supplement Metastatic melanoma -reportedly in remission -completed dosing of nivolomab 03/07/18 12:31 Subjective: BP's high, frustrated by not having biopsy report. Objective: Vital Signs Temp Pulse Resp BP Pulse Ox 36.9 C 43 L 16 163/89 H 95 03/07/18 07:40 03/07/18 07:40 03/07/18 07:40 03/07/18 07:40 03/07/18 07:40 Laboratory Results 03/07/18 04:30 03/07/18 04:30 03/06/18 03/07/18 03/08/18 05:59 05:59 05:59 Output Total 280 Balance -280 PT 15.0 SEC (12.0-15.0) 03/03/18 11:13 INR 1.16 (0.83-1.16) 03/03/18 11:13 Physical Exam - Physical Exam General Appearance: WD/WN, alert, obese EENT: PERRL/EOMI, normal ENT inspection Neck: non-tender, full range of motion, supple Respiratory: lungs clear, normal breath sounds Abdomen: normal bowel sounds, non-tender, soft Skin: normal color, warm/dry Extremities: normal range of motion, non-tender, pedal edema ICD10 Worksheet Patient Problems: Problems Problem Status Onset Acute renal failure (ARF) Acute Arthritis of knee Acute
[2018-03-07] MEDS: hydrALAZINE 20 MG/ML VIAL IVP PRN (12:59)
[2018-03-07] MEDS: amLODIPine BESYLATE 5 MG TAB PO SCH (14:23)
--- NOTE | 2018-03-07 17:40 | HOSPPROG ---
Hospitalist Progress Note Assessment/Plan: Subjective Follow-up on acute kidney injury on top of chronic kidney disease. No acute events overnight. I discussed with José Luis that we are awaiting the results back from his renal biopsy. He states he is making good urine without any abdominal complaints. We also reviewed his melanoma treatment history for which he states he has recently finished his biologic in the past couple of months. Objective Vitals as detailed below Exam General-awake alert conversant no acute distress Heart-regular rate and rhythm no murmurs Lungs-Clear to auscultation with normal respiratory effort Abdomen-soft nontender nondistended normal bowel sounds -no Chaudhary catheter in place Extremities-no significant pitting edema or calf pain with palpation Skin-no concerning skin rashes noted Labs as detailed below Assessment plan Acute kidney injury on top of chronic kidney disease-working diagnosis is that is related to his biologic he was receiving for melanoma. He was started on empiric prednisone and is not currently on IV fluids. His creatinine has gradually improved and is currently at 3.8. Appreciate Nephrology assistance as well on the case. Metastatic melanoma-patient is followed by Oncology locally and recently completed nearly a year of biologic therapy. Hyperkalemia-improved. Potassium 4.9 today. Metabolic acidosis-continue sodium bicarbonate. Hypertension-amlodipine 5 mg daily added today on top of the current metoprolol and hydralazine for elevated readings. Bradycardia-monitor with current metoprolol therapy. Hypothyroidism-continue levothyroxine at 50 mcg daily. DVT prophylaxis-heparin. Disposition-likely safe for home once clear from Nephrology standpoint. Objective: Vital Signs Temp Pulse Resp BP Pulse Ox 36.6 C 68 20 169/86 H 96 03/07/18 15:19 03/07/18 15:19 03/07/18 15:19 03/07/18 15:19 03/07/18 15:19 Laboratory Results 03/07/18 04:30 03/07/18 04:30 03/06/18 03/07/18 03/08/18 05:59 05:59 05:59 Output Total 280 Balance -280 PT 15.0 SEC (12.0-15.0) 03/03/18 11:13 INR 1.16 (0.83-1.16) 03/03/18 11:13 ICD10 Worksheet Patient Problems: Problems Problem Status Onset Acute renal failure (ARF) Acute Arthritis of knee Acute
[2018-03-07] MEDS: ACETAMINOPHEN 325 MG TAB PO PRN (17:54)
--- NOTE | 2018-03-07 19:03 | SOAPPROG ---
SOAP Progress Note Assessment/Plan: Assessment/Plan: 57 yo gentleman w recent erika recurrence of melanoma (Stage 3) s/p 1 year of adjuvant nivolumab who p/w acute renal failure responsive to steroids 1. ARF -s/p renal biopsy 03/04. 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 -Kidney function continues to improve, no indications for HD 2. Hyperkalemia-resolved secondary to ARF 2. Stage III melanoma w erika recurrence - completed full year of nivolumab recently. monitor mild PET uptake in R inguinal area - can be done as outpatient 3. HTN - monitor on steroids 4. FEN - per renal 5. Normocytric Anemia - grade 1 from renal failure 6. DVT prophylaxis- sq heparin. 03/07/18 19:02 Subjective: Patient reports feeling well without complaints. Objective: Vital Signs Temp Pulse Resp BP Pulse Ox 36.6 C 68 20 169/86 H 96 03/07/18 15:19 03/07/18 15:19 03/07/18 15:19 03/07/18 15:19 03/07/18 15:19 Laboratory Results 03/07/18 04:30 03/07/18 04:30 03/06/18 03/07/18 03/08/18 05:59 05:59 05:59 Intake Total 1500 Output Total 280 Balance -280 1500 PT 15.0 SEC (12.0-15.0) 03/03/18 11:13 INR 1.16 (0.83-1.16) 03/03/18 11:13 General Appearance: alert, no apparent distress Neck: supple Respiratory: lungs clear to auscultation CV: regular rate and rhythm without rubs thrills or gallops Abdomen: non-tender, soft, no HSM Extremities: No pedal edema, warm and well perfused Neuro: alert and oriented x 3 ICD10 Worksheet Patient Problems: Problems Problem Status Onset Acute renal failure (ARF) Acute Arthritis of knee Acute
[2018-03-08 05:41] LABS: PLATELET COUNT 444 10^3/uL (150-400)
[2018-03-08] MEDS: METOPROLOL SUCCINATE XR 25 MG TAB PO SCH (06:09)
[2018-03-08] MEDS: HEPARIN 5,000 UNIT/0.5 ML INJ SC SCH (06:09)
[2018-03-08] MEDS: LEVOTHYROXINE 50 MCG TAB PO SCH (06:12)
[2018-03-08] MEDS: amLODIPine BESYLATE 5 MG TAB PO SCH (08:47)
[2018-03-08] MEDS: CALCIUM CARBONATE 500 MG CHEWABLE TAB PO SCH (08:47)
[2018-03-08] MEDS: FAMOTIDINE 20 MG TAB PO SCH (08:48)
[2018-03-08] MEDS: SODIUM BICARBONATE 650 MG TAB PO SCH (08:48)
[2018-03-08] MEDS: predniSONE 20 MG TAB PO SCH (08:48)
[2018-03-08 10:56] VITALS: BP 163/91
--- NOTE | 2018-03-08 11:25 | GDS ---
DIAGNOSES: 1. 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 2. Hyperkalemia, improved. 3. Metastatic melanoma in remission, recently on immunotherapy, will be followed up by Dr. Ekta bran. 4. Anemia. CONSULTATIONS: Nephrology and Oncology. PROCEDURES DONE: Renal biopsy and echocardiogram. HOSPITAL COURSE: Mr. Choudhury is a 57-year-old man with a history significant for melanoma for which he recently was diagnosed with lymph node involvement and has been on immunotherapy, which he just compl eted. He is being admitted for acute kidney injury thought secondary to possibly the immunotherapy. He was admitted with increasing creatinine that had increased up to 1.7 in January and most recently his creatinine was in the 5 range, so he was admitted to the hospital for renal failure, nonoliguric . On admission, he had an echocardiogram, urine studies, and an eventual renal biopsy. The renal bi opsy did confirm interstitial nephritis thought likely secondary to his immune therapy. Over the cou rse of his hospitalization, he was started on high-dose prednisone at 60 mg twice a day, and his crea tinine and potassium have been improving throughout his stay. At the time of discharge, his creatini ne is 3.0, and his potassium is 4.8. DISCHARGE CONDITION: Good. PHYSICAL EXAMINATION: VITAL SIGNS: His heart rate is 55, blood pressure 166/82, respirations 16, he is 95% on room air. GENERAL: He is alert and oriented. He has no pain. DISCHARGE MEDICATIONS: Please see discharge medication list. Of note, his amlodipine was increased on the day of discharge from 5 to 10 mg daily for his hypertension, and he will continue on prednison e 60 mg daily. FOLLOWUP INSTRUCTIONS: He will follow up with Dr. Staley, and her office will contact him for nancy mendez. He will get blood work done next week to be sent to both Dr. Staley as well as Dr. Neto mcqueen. He is currently trying to follow up with Dr. Arvizu as well, and he can follow up with his primary care provider. Total time spent with patient on day of discharge and in coordination of care is 35 minutes. Copy requested to: Dr. Diop /[id number]/[facility] [place]
--- NOTE | 2018-03-08 22:11 | SOAPPROG ---
SOAP Progress Note Assessment/Plan: Assessment/Plan: 57 yo gentleman w recent erika recurrence of melanoma (Stage 3) s/p 1 year of adjuvant nivolumab who p/w acute renal failure responsive to steroids 1. ARF -s/p renal biopsy 03/04 with AIN. 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 -Kidney function continues to improve, no indications for HD. Would continue high dose prednisone until kidney function resolves then taper over 3-4 weeks 2. Hyperkalemia-resolved secondary to ARF 2. Stage III melanoma w erika recurrence - completed full year of nivolumab recently. monitor mild PET uptake in R inguinal area - can be done as outpatient 3. HTN - monitor on steroids 4. FEN - per renal 5. Normocytric Anemia - grade 1 from renal failure 6. DVT prophylaxis- sq heparin. 03/08/18 22:10 Subjective: patient reports feeling well without complaints. No new symptoms Objective: Vital Signs Temp Pulse Resp BP Pulse Ox 36.4 C 56 L 16 163/91 H 95 03/08/18 07:08 03/08/18 10:55 03/08/18 07:08 03/08/18 10:55 03/08/18 07:08 Laboratory Results 03/08/18 04:19 03/08/18 04:19 03/07/18 03/08/18 03/09/18 05:59 05:59 05:59 Intake Total 1500 Balance 1500 PT 15.0 SEC (12.0-15.0) 03/03/18 11:13 INR 1.16 (0.83-1.16) 03/03/18 11:13 General Appearance: alert, no apparent distress Neck: supple Respiratory: lungs clear to auscultation CV: regular rate and rhythm without rubs thrills or gallops Abdomen: non-tender, soft, no HSM Extremities: No pedal edema, warm and well perfused Neuro: alert and oriented x 3 ICD10 Worksheet Patient Problems: Problems Problem Status Onset Acute renal failure (ARF) Acute Arthritis of knee Acute
== END 2018-03-08 12:42 | disposition home or self-care (01) | DRG 699 ==
LOC: F3E 18:06
PROVIDERS: ADMIT Internal Medicine; ATTEND Internal Medicine
PROC: 0TB13ZX Excision of Left Kidney, Percutaneous Approach, Diagnostic (ICD-10-PCS; principal; 2018-03-04 16:20)
DX: N14.1 Nephropathy induced by other drugs, medicaments and biological substances (principal); T45.1X5A Adverse effect of antineoplastic and immunosuppressive drugs, initial encounter; N18.3 Chronic kidney disease, stage 3 (moderate); E83.30 Disorder of phosphorus metabolism, unspecified; E87.2 Acidosis; E87.5 Hyperkalemia; C77.4 Secondary and unspecified malignant neoplasm of inguinal and lower limb lymph nodes; Z85.820 Personal history of malignant melanoma of skin; E03.9 Hypothyroidism, unspecified; G47.33 Obstructive sleep apnea (adult) (pediatric); I10 Essential (primary) hypertension; G43.909 Migraine, unspecified, not intractable, without status migrainosus
CPT/HCPCS: 82435-PO; 82565-PO; 82947-PO; 84132-PO; 84295-PO; 84520-PO; 85014-PO; J0360; J1644; J2250; J2310; J3010; J7512

== ENCOUNTER → 2018-03-24 | Outpatient (CLI) | payer OTHER | END | disposition home or self-care (01) | LOC: FIMAGING 10:11 | PROVIDERS: ATTEND Internal Medicine | DX: C43.72 Malignant melanoma of left lower limb, including hip (principal); R93.89 Abnormal findings on diagnostic imaging of other specified body structures ==

== ENCOUNTER → 2018-03-28 | Outpatient (CLI) | payer OTHER ==
[~2018-03-28] MED LIST changes: -ACETAMINOPHEN 500 MG TAB PO ONE; +LIDOCAINE 1% 300 MG/30 ML SDV ONE; -PREGABALIN 150 MG CAP PO ONE; -ROPIVACAINE 0.2% 80 MG, EPINEPHrine 0.2 MG, KETOROLAC TROMETHAMINE 30 MG, morphINE 10 M... IU ONE; +THROMBIN (BOVINE) 5,000 UNIT VIAL TP ONE; -TRANEXAMIC ACID 3,000 MG in NS 50 ML IRR ONE; -ceFAZolin 2 GM/SWFI 2 GM/20 ML SYR IVP ONE
== END | disposition home or self-care (01) ==
LOC: FIMAGING 10:02
PROVIDERS: ATTEND Internal Medicine
PROC: 07BH3ZX Excision of Right Inguinal Lymphatic, Percutaneous Approach, Diagnostic (ICD-10-PCS; principal; 2018-03-28)
DX: C77.4 Secondary and unspecified malignant neoplasm of inguinal and lower limb lymph nodes (principal); Z85.820 Personal history of malignant melanoma of skin
CPT/HCPCS: 88184-90; 88185-91

== ENCOUNTER 2018-04-29 06:49 | Day surgery (SDC) | payer OTHER ==
[2018-04-29] MEDS ORDERED: ceFAZolin 2 GM/DEXTROSE 100 ML IV ONE (07:05)
[2018-04-29] MEDS ORDERED: BUPIVACAINE/EPI 0.5% 30 ML SDV ONE (07:06)
[2018-04-29] MEDS ORDERED: LR 1,000 ML IV ONE (07:06)
[2018-04-29] MEDS ORDERED: NS 1,000 ML IV ONE (07:09)
[2018-04-29] MEDS ORDERED: DEXAMETHASONE 4 MG/ML VIAL ONE (07:56)
[2018-04-29] MEDS ORDERED: ONDANSETRON 4 MG/2 ML VIAL ONE (07:56)
[2018-04-29] MEDS ORDERED: LIDOCAINE 2% 100 MG/5 ML SYR ONE (07:56)
[2018-04-29] MEDS ORDERED: fentaNYL 100 MCG/2 ML INJ ONE ×2 (07:57→09:25)
[2018-04-29] MEDS ORDERED: PROPOFOL/EMULSION 500 MG/50 ML BOTTLE IV ONE (07:57)
[2018-04-29] MEDS ORDERED: MIDAZOLAM 2 MG/2 ML VIAL ONE (08:53)
[2018-04-29] MEDS ORDERED: MIDAZOLAM 2 MG/2 ML VIAL IVP ONE (08:57)
--- NOTE | 2018-04-29 08:57 | PDANEPAE ---
ANE History of Present Illness Right inguinal lymph node removal for enlarged lymph nodes ANE Past Medical History - Cardiovascular History Hx Hypertension: Yes Hx Arrhythmias: No Hx Chest Pain: No Hx Coronary Artery / Peripheral Vascular Disease: No Hx CHF / Valvular Disease: No Hx Palpitations: No Cardiovascular History Comment: HX OF IRREGULAR HEARTBEAT DURING SURGERY HAS BEEN FOLLOWED UP WITH CARDIOLOGY NO KNOWN REASON. BP HAS BEEN ELEVATED- F/U WITH PCP NO TX NEEDED - Pulmonary History Hx COPD: No Hx Asthma/Reactive Airway Disease: No Hx Recent Upper Respiratory Infection: No Hx Oxygen in Use at Home: No Hx Sleep Apnea: Yes Sleep Apnea Screening Result - Last Documented: Positive Pulmonary History Comment: DENIES SOB W STAIRS - Neurologic History Hx Cerebrovascular Accident: No Hx Seizures: No Hx Dementia: No Neurologic History Comment: CHRONIC MIGRAINES- recently placed on Metoprolol for H/A - Endocrine History Hx Diabetes: No Endocrine History Comment: LOW THYROID - Renal History Hx Renal Disorders: Yes Renal History Comment: RENAL INSUFFICIENCY - Liver History Hx Hepatic Disorders: No - Neurological & Psychiatric Hx Hx Neurological and Psychiatric Disorders: No Neurological / Psychiatric History Comment: HX OF DEPRESSION NONE CURRENTLY - Cancer History Hx Cancer: Yes Cancer History Comment: MELANOMA - Congenital Disorder History Hx Congenital Disorders: No - GI History Hx Gastrointestinal Disorders: No - Other Health History Other Health History: FATIQUE AND MYALGIA RELATED TO IMMUNO THERAPY. OA SALBADOR KNEES AND WRISTS. - Chronic Pain History Chronic Pain: Yes (RT KNEE AND WRISTS) - Surgical History Prior Surgeries: LT TOTAL KNEE 03/2017. Excision of 3 maligant moles '15. LEFT KNEE SURGERY IN 1990. LEFT KNEE SCOPE X3. 30 YEARS AGO BROKEN LEFT WRIST REPAIR. MELANOMA BX AND LYMPH NODES ANE Review of Systems Review of Systems: - Exercise capacity METS (RN): 2 METS ANE Patient History - Allergies Allergies/Adverse Reactions: ENVIRONMENTAL Allergy (Mild, Uncoded 02/17/17 06:32) RHINITIS - Home Medications Home Medications: Cholecalciferol Vit D3 [Vitamin D3 (*)] 10,000 units PO DAILY #0 02/16/17 [Last Taken 04/28/18] Levothyroxine [Synthroid 50 mcg (*)] 50 mcg PO DAILY06 #0 02/16/17 [Last Taken 04/29/18 05:30] Metoprolol Succinate Xr [Toprol Xl 25 mg (*)] 25 mg PO BID #0 02/16/17 [Last Taken 04/28/18] Omeprazole 40 mg PO DAILY06 03/02/18 [Last Taken 04/28/18] amLODIPine BESYLATE [Amlodipine Besylate] 10 mg PO PRN 04/28/18 [Last Taken 3 Weeks Ago ~04/08/18] predniSONE mg PO BID 04/28/18 [Last Taken 04/28/18] - NPO status NPO Since - Liquids (Date): 04/29/18 NPO Since - Liquids (Time): 05:30 NPO Since - Solids (Date): 04/28/18 NPO Since - Solids (Time): 19:00 - Smoking Hx Smoking Status: Never smoked - Family Anes Hx Family Hx Anesthesia Complications: NONE ANE Labs/Vital Signs - Vital Signs Blood Pressure: 165/120 Heart Rate: 99 Respiratory Rate: 18 O2 Sat (%): 92 Height: 178.44 cm Weight: 117.934 kg ANE Physical Exam - Airway Neck exam: FROM Mallampati Score: Class 2 Mouth exam: normal dental/mouth exam - Pulmonary Pulmonary: no respiratory distress, no rales or rhonchi - Cardiovascular Cardiovascular: regular rate and rhythym, no murmur, rub, or gallop - ASA Status ASA Status: III ANE Anesthesia Plan Anesthesia Plan: GA with mask Total IV Anesthesia: Yes
[2018-04-29] MEDS ORDERED: MEPERIDINE 25 MG/0.5 ML AMP IVP PRN (09:33)
[2018-04-29] MEDS ORDERED: HYDROCODONE/APAP 5/325 TAB PO PRN (09:33)
[2018-04-29] MEDS ORDERED: fentaNYL 100 MCG/2 ML INJ IVP PRN (09:33)
[2018-04-29] MEDS ORDERED: HYDROmorphONE/DILAUDID 2 MG/ML INJ IVP PRN (09:33)
[2018-04-29] MEDS ORDERED: DEXAMETHASONE 4 MG/ML VIAL IVP PRN (09:33)
[2018-04-29] MEDS ORDERED: NALOXONE HCL 0.4 MG/ML INJ IVP PRN (09:33)
[2018-04-29] MEDS ORDERED: LR 500 ML IV PRN (09:33)
--- NOTE | 2018-04-29 09:35 | POSTOPPROG ---
Post Op Note Date of Operation: 04/29/18 Surgeon: Jacqueline Brito Research Assistant: abelardo Anesthesiologist: fuad Anesthesia: IV Sedation Pre-op Diagnosis: metastatic malignant melanoma Post-op Diagnosis: same Indication: 57 yo with new isolated mets to right groin Procedure: excision r lymph nodes groin Findings: dark nodes x 2 Inf/Abcess present in the surg proc area at time of surgery?: No EBL: Minimal Specimen(s): lymph nodes
--- NOTE | 2018-04-29 10:02 | GOP ---
DATE OF OPERATION: 04/29/2018 SURGEON: Jacqueline Brito MD PUBLIC INTERVIEWER: Gill Storm, FAUZIA ANESTHESIA: Monitored anesthesia care with IV sedation. ANESTHESIOLOGIST: Maik Sales DO PREOPERATIVE DIAGNOSIS: Metastatic malignant melanoma. POSTOPERATIVE DIAGNOSIS: Metastatic malignant melanoma. PROCEDURE PERFORMED: Excision of right inguinal lymph node x2. FINDINGS: Two dark lymph nodes, superficial. SPECIMENS: Right inguinal lymph node. ESTIMATED BLOOD LOSS: 5 cc. INDICATIONS: The patient is a 57-year-old with melanoma to his left lower extremity. He had a lymph node dissection on the left side. He now has a recurrence on the right. This is isolated. He has been on nivolumab. DESCRIPTION OF PROCEDURE: Patient was brought into the operating room, placed supine on the table, a nd monitored anesthesia care with IV sedation was performed. His right groin was prepped and draped in the usual sterile fashion. I infiltrated the area with 0.5% Marcaine with epinephrine prior to ma rose mary incisions. I made an incision over the palpable nodes. I dissected down through the skin and s ubcutaneous tissues. I divided the superficial fascia. The nodes were dark and readily apparent. I circumferentially dissected these from the investing tissues. I passed them off the field. I felt the base of the wound, and there were no additional abnormalities noted. Hemostasis achieved. Fasci a closed with 3-0 Vicryl. Skin closed with 3-0 Vicryl followed by 4-0 Monocryl. Mastisol, Steri-Str ips, sterile dressing applied. He was awakened in the operating room, transferred to PACU in stable condition. /[id number]/MODL
[2018-04-29 11:44] VITALS: BP 131/73
== END 2018-04-29 11:25 | disposition home or self-care (01) ==
LOC: FSGY 06:49
PROVIDERS: ATTEND Surgery
PROC: 07BH0ZZ Excision of Right Inguinal Lymphatic, Open Approach (ICD-10-PCS; principal; 2018-04-29 08:30)
DX: C77.4 Secondary and unspecified malignant neoplasm of inguinal and lower limb lymph nodes (principal); C43.72 Malignant melanoma of left lower limb, including hip; E03.9 Hypothyroidism, unspecified; G47.33 Obstructive sleep apnea (adult) (pediatric); G43.909 Migraine, unspecified, not intractable, without status migrainosus; N18.9 Chronic kidney disease, unspecified; Z96.652 Presence of left artificial knee joint; Z98.890 Other specified postprocedural states
CPT/HCPCS: J0690; J1100; J2001; J2250; J2405; J2704; J3010

== ENCOUNTER → 2018-05-06 | Outpatient (CLI) | payer OTHER | LOC: FIMAGING 10:51 | PROVIDERS: ATTEND Internal Medicine | DX: R05 Cough (principal) ==

== ENCOUNTER → 2018-05-12 | Outpatient (CLI) | payer OTHER ==
[~2018-05-12] MED LIST changes: +GADOBUTROL 10 ML VIAL IVP ONE; -LIDOCAINE 1% 300 MG/30 ML SDV ONE; -THROMBIN (BOVINE) 5,000 UNIT VIAL TP ONE
== END ==
LOC: FIMAGING 13:54
PROVIDERS: ATTEND Internal Medicine
DX: C43.72 Malignant melanoma of left lower limb, including hip (principal)
CPT/HCPCS: A9585

== ENCOUNTER 2018-05-16 10:46 | Emergency (ER) | payer OTHER ==
--- NOTE | 2018-05-16 12:40 | EDPHY ---
H & P Stated Complaint: Hot swollen right calf, recent sx 04/30 Time Seen by Provider: 05/16/18 11:46 HPI/ROS: CHIEF COMPLAINT: Right calf pain HISTORY OF PRESENT ILLNESS: Patient is a 57-year-old man who is 2 weeks status post right groin lymph node dissection for melanoma found in the region. Yesterday he noticed some swelling and tightness in his right calf. No erythema. No fever. Moderate pain with ambulation. No trauma surgeries done by Dr. Brito. He also reports a history of renal insufficiency from chemotherapeutic medication use last year. He has been on prednisone chronically for this in his creatinine is been gradually improving. He is currently on prednisone 20 mg a day. Severity: Mild Modifying factors: None REVIEW OF SYSTEMS: Constitutional: denies: chills, fever, recent illness, recent injury EENTM: denies: blurred vision, double vision, nose congestion Respiratory: denies: cough, shortness of breath Cardiac: denies: chest pain, irregular heart rate, lightheadedness, palpitations Gastrointestinal/Abdominal: denies: abdominal pain, diarrhea, nausea, vomiting, blood streaked stools Genitourinary: denies: dysuria, frequency, hematuria, pain Musculoskeletal: See above Skin: denies: lesions, rash, jaundice, bruising Neurological: denies: headache, numbness, paresthesia, tingling, dizziness, weakness Hematologic/Lymphatic: denies: blood clots, easy bleeding, easy bruising Immunologic/allergic: denies: HIV/AIDS, transplant 10 systems reviewed and negative except as noted EXAM: GENERAL: Well-appearing, well-nourished and in no acute distress. HEAD: Atraumatic, normocephalic. EYES: Pupils equal round and reactive to light, extraocular movements intact, sclera anicteric, conjunctiva are normal. ENT: TMs normal, nares patent, oropharynx clear without exudates. Moist mucous membranes. NECK: Normal range of motion, supple without lymphadenopathy or JVD. LUNGS: Breath sounds clear to auscultation bilaterally and equal. No wheezes rales or rhonchi. HEART: Regular rate and rhythm without murmurs, rubs or gallops. ABDOMEN: Soft, nontender, normoactive bowel sounds. No guarding, no rebound. No masses appreciated. BACK: No CVA tenderness, no spinal tenderness, step-offs or deformities EXTREMITIES: Right calf with slight swelling and tightness. No erythema or warmth. No signs of trauma. NEUROLOGICAL: Cranial nerves II through XII grossly intact. Normal speech, normal gait. 5/5 strength, normal movement in all extremities, normal sensation , normal reflexes PSYCH: Normal mood, normal affect. SKIN: Warm, dry, normal turgor, no visible rashes or lesions. Source: Patient - Personal History Current Tetanus/Diphtheria Vaccine: Unsure Current Tetanus Diphtheria and Acellular Pertussis (TDAP): Unsure - Medical/Surgical History Hx Asthma: No Hx Chronic Respiratory Disease: No Hx Diabetes: No Hx Cardiac Disease: No Hx Renal Disease: Yes Hx Cirrhosis: No Hx Alcoholism: No Hx HIV/AIDS: No Hx Splenectomy or Spleen Trauma: No Other PMH: sleep apnea, chronic migraines, melanoma removal. immunotherapy treament, multiple knee surgeries - Family History Significant Family History: No pertinent family hx - Social History Smoking Status: Never smoked Alcohol Use: None Constitutional: Initial Vital Signs Temperature (C) 36.5 C 05/16/18 11:02 Heart Rate 78 05/16/18 11:02 Respiratory Rate 16 05/16/18 11:02 Blood Pressure 162/89 H 05/16/18 11:02 O2 Sat (%) 94 05/16/18 11:02 O2 Delivery Mode Room Air Allergies/Adverse Reactions: ENVIRONMENTAL Allergy (Mild, Uncoded 02/17/17 06:32) RHINITIS Home Medications: Medication Instructions Recorded Cholecalciferol Vit D3 [Vitamin D3 10,000 units PO DAILY #0 02/16/17 (*)] Levothyroxine [Synthroid 50 mcg 50 mcg PO DAILY06 #0 02/16/17 (*)] Metoprolol Succinate Xr [Toprol Xl 25 mg PO BID #0 02/16/17 25 mg (*)] Omeprazole 40 mg PO DAILY06 03/02/18 amLODIPine BESYLATE [Amlodipine 10 mg PO PRN 04/28/18 Besylate] predniSONE mg PO BID 04/28/18 Apixaban [Eliquis 30-day Starter 1 kit PO AD #1 kit 05/16/18 Pack] Medical Decision Making - Diagnostics Imaging: Discussed imaging studies w/ hospice consultant Radiologist ED Course/Re-evaluation: 1:30 p.m. I spoke with Dr. Colon who a reviewed the record and spoke with Dr. Rebecca PAGE and agrees with him starting anticoagulation. 1:50 p.m. patient's baseline lab work is reassuring. Will start on Eliquis and have him follow up with Dr. Brito and his primary. He understands and agrees with this plan. Declines further workup or testing at this time. Discussed indications for return to the emergency department. Differential Diagnosis: Partial list of the Differential diagnosis considered include but were not limited to; DVT, superficial thrombophlebitis and although unlikely based on the history and physical exam, I also considered infection, trauma, compartment syndrome. I discussed these differential diagnoses and the plan with the patient as well as the usual and expected course. The patient understands that the diagnosis is provisional and that in medicine we are not always correct and that further workup is often warranted. Usual and customary warnings were given. All of the patient's questions were answered. The patient was instructed to return to the emergency department should the symptoms at all worsen or return, otherwise to followup with the physician as we discussed. - Data Points Laboratory Results: Laboratory Results 05/16/18 12:45 05/16/18 12:45 Medications Given: Discontinued Medications Apixaban (Eliquis) 10 mg PO EDNOW ONE Stop: 05/16/18 13:56 Last Admin: 05/16/18 14:17 Dose: 10 mg Departure - Departure Disposition: Home, Routine, Self-Care Clinical Impression: Right leg DVT Qualifiers: Affected thrombotic vein of extremity: unspecified vein of extremity Chronicity : acute Qualified Code(s): I82.401 - Acute embolism and thrombosis of unspecified deep veins of right lower extremity Condition: Fair Instructions: Deep Vein Thrombosis (ED) Referrals: ODILON CHANG [Primary Care Provider] - 2-3 days, call for appt. Jacqueline Brito MD [Medical Doctor] - 5-7 days, call for appt. Prescriptions: Apixaban [Eliquis 30-day Starter Pack] 1 kit PO AD #1 kit
[2018-05-16 12:59] LABS: PLATELET COUNT 279 10^3/uL (150-400)
[2018-05-16 13:21] LABS: INR 1.06 (0.83-1.16)
[2018-05-16] MEDS ORDERED: APIXABAN 5 MG TAB PO ONE (13:55)
[2018-05-16 14:14] VITALS: BP 174/35
== END 2018-05-16 14:18 | disposition home or self-care (01) ==
DX: I82.401 Acute embolism and thrombosis of unspecified deep veins of right lower extremity (principal)

== ENCOUNTER 2018-07-28 18:18 | Inpatient (IN) | payer OTHER ==
[2018-07-28] MEDS ORDERED: NS 1,000 ML IV ONE ×2 (18:27)
--- NOTE | 2018-07-28 18:45 | EDPHY ---
H & P Stated Complaint: oncologist sent pt due to elevated renal labs Time Seen by Provider: 07/28/18 18:24 HPI/ROS: CHIEF COMPLAINT: Abnormal laboratory studies HISTORY OF PRESENT ILLNESS: The patient is referred to the emergency department by Oncology for worsening renal failure and and reported hyperkalemia. The patient has a history of melanoma and chemo induced nephritis. Currently on oral steroids. The patient has been hospitalized for similar issues in the past. By report the patient's outpatient creatinine was 2.7 with a calcium of 13.1. The patient reports over the past 2 weeks his creatinine has gone from 1.7-2.7. He recently has started a new chemo regimen for his underlying malignancy. He is also developed hypercalcemia over the past week. The patient had been on steroids without improvement of renal function. He was referred to the ED by his oncologist requesting hospitalization. The patient has complaints of mild headache and generalized pain but denies any focal numbness or weakness. He denies any fever, cough or congestion. He continues to make urine at a slightly decreased volume. REVIEW OF SYSTEMS: A comprehensive 10 point review of systems is otherwise negative aside from elements mentioned in the history of present illness. Source: Patient Exam Limitations: No limitations - Personal History Current Tetanus/Diphtheria Vaccine: Yes Current Tetanus Diphtheria and Acellular Pertussis (TDAP): Yes - Medical/Surgical History Hx Asthma: No Hx Chronic Respiratory Disease: No Hx Diabetes: No Hx Cardiac Disease: No Hx Renal Disease: Yes Hx Cirrhosis: No Hx Alcoholism: No Hx HIV/AIDS: No Hx Splenectomy or Spleen Trauma: No Other PMH: sleep apnea, chronic migraines, melanoma removal. 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 - Social History Smoking Status: Never smoked - Physical Exam Exam: General Appearance: Slightly obese male, no acute distress Eyes: Pupils equal and round no pallor or injection ENT, Mouth: Mucous membranes moist Respiratory: There are no retractions, lungs are clear to auscultation Cardiovascular: Regular rate and rhythm Gastrointestinal: Abdomen is soft and nontender, no masses, bowel sounds normal Neurological: 5/5 strength noted all 4 extremities Skin: Warm and dry, no rashes Musculoskeletal: Neck is supple nontender Extremities: symmetrical, full range of motion Psychiatric: Patient is oriented X 3, there is no agitation Constitutional: Initial Vital Signs Temperature (C) 36.9 C 07/28/18 18:23 Heart Rate 77 07/28/18 18:23 Respiratory Rate 16 07/28/18 18:23 Blood Pressure 146/88 H 07/28/18 18:23 O2 Sat (%) 94 07/28/18 18:23 O2 Delivery Mode Room Air Allergies/Adverse Reactions: ENVIRONMENTAL Allergy (Mild, Uncoded 07/28/18 18:27) RHINITIS Home Medications: Medication Instructions Recorded Cholecalciferol Vit D3 [Vitamin D3 5,000 units PO DAILY #0 02/16/17 (*)] Levothyroxine [Synthroid 50 mcg 50 mcg PO DAILY06 #0 02/16/17 (*)] Metoprolol Succinate Xr [Toprol Xl 25 mg PO BID #0 02/16/17 25 mg (*)] Omeprazole 40 mg PO DAILY06 03/02/18 Binimetinib [Mektovi] 30 mg PO AD 07/28/18 Encorafenib [Braftovi] 150 mg PO AD 07/28/18 Enoxaparin [Lovenox 120 MG (*)] 120 mg SQ Q12H 07/28/18 Prochlorperazine Maleate 10 mg PO BID PRN 07/28/18 [Compazine 10mg (*)] predniSONE 5 mg PO DAILY 07/28/18 Medical Decision Making - Diagnostics EKG Interpretation: EKG: Complete interpretation has been separately recorded in the [employer] archive. Summary impression: Sinus rhythm, nonspecific ST T wave changes noted. No QT prolongation. ED Course/Re-evaluation: Patient was placed on a cardiac catheterization technologist and observed of stable vital signs. His creatinine today is 2.7. He has normal potassium. Calcium currently pending. The patient is a benign abdominal examination. There is no indication for emergent dialysis. Consultation is made with Dr. Sukumar Quevedo from the hospitalist service who will admit the patient. Patient is noted to be hypercalcemic. He will initially be treated with aggressive IV fluid hydration in the emergency department. Patient will be admitted to the hospital for further evaluation and management. He has no evidence of a arrhythmia in the emergency department. Consultation with Oncology Nephrology you will be deferred to the hospitalist service. Differential Diagnosis: Differential diagnosis considered includes hyperkalemia, hypercalcemia renal failure, dehydration, medication side effect - Data Points Laboratory Results: Laboratory Results 07/28/18 18:35 07/28/18 18:35 07/28/18 07/28/18 07/28/18 18:40 18:35 18:35 WBC 9.32 10^3/uL 10^3/uL (3.80-9.50) RBC 3.96 10^6/uL L 10^6/uL (4.40-6.38) Hgb 12.3 g/dL L g/dL (13.7-17.5) POC Hgb 12.6 gm/dL L gm/dL (13.7-17.5) Hct 37.7 % L % (40.0-51.0) POC Hct 37 % L % (40-51) MCV 95.2 fL fL (81.5-99.8) MCH 31.1 pg pg (27.9-34.1) MCHC 32.6 g/dL g/dL (32.4-36.7) RDW 14.0 % % (11.5-15.2) Plt Count 463 10^3/uL H 10^3/uL (150-400) MPV 9.4 fL fL (8.7-11.7) Neut % (Auto) 59.6 % % (39.3-74.2) Lymph % (Auto) 18.0 % % (15.0-45.0) Mccone % (Auto) 12.7 % % (4.5-13.0) Eos % (Auto) 5.9 % % (0.6-7.6) Baso % (Auto) 2.1 % H % (0.3-1.7) Nucleat RBC Rel Count 0.2 % % (0.0-0.2) Absolute Neuts (auto) 5.55 10^3/uL 10^3/uL (1.70-6.50) Absolute Lymphs (auto) 1.68 10^3/uL 10^3/uL (1.00-3.00) Absolute Monos (auto) 1.18 10^3/uL H 10^3/uL (0.30-0.80) Absolute Eos (auto) 0.55 10^3/uL H 10^3/uL (0.03-0.40) Absolute Basos (auto) 0.20 10^3/uL H 10^3/uL (0.02-0.10) Absolute Nucleated RBC 0.02 10^3/uL H 10^3/uL (0-0.01) Immature Gran % 1.7 % H % (0.0-1.1) Immature Gran # 0.16 10^3/uL H 10^3/uL (0.00-0.10) POC Sodium 140 mEq/L mEq/L (135-145) Sodium 136 mEq/L mEq/L (135-145) POC Potassium 4.5 mEq/L mEq/L (3.3-5.0) Potassium 4.8 mEq/L mEq/L (3.5-5.2) POC Chloride 110 mEq/L mEq/L (97-110) Chloride 107 mEq/L mEq/L (97-110) Carbon Dioxide 18 mEq/l L mEq/l (22-31) POC Total CO2 21 mEq/L L mEq/L (22-31) Anion Gap 11 mEq/L mEq/L (6-14) POC BUN 25 mg/dL H mg/dL (7-23) BUN 26 mg/dL H mg/dL (7-23) Creatinine 2.5 mg/dL H mg/dL (0.7-1.3) POC Creatinine 2.7 mg/dL H mg/dL (0.7-1.3) Estimated GFR 27 Glucose 143 mg/dL H mg/dL (70-100) POC Glucose 146 mg/dL H mg/dL (70-100) Calcium 13.9 mg/dL H* mg/dL (8.5-10.4) Medications Given: Discontinued Medications Sodium Chloride (Ns) 1,000 mls @ 0 mls/hr IV EDNOW ONE; Wide Open PRN Reason: Protocol Stop: 07/28/18 18:28 Last Admin: 07/28/18 18:34 Dose: 1,000 mls Sodium Chloride (Ns) 1,000 mls @ 0 mls/hr IV EDNOW ONE; Wide Open PRN Reason: Protocol Stop: 07/28/18 18:28 Last Admin: 07/28/18 19:07 Dose: 1,000 mls Point of Care Test Results: Chemistry 07/28/18 18:40 POC Sodium 140 mEq/L mEq/L (135-145) POC Potassium 4.5 mEq/L mEq/L (3.3-5.0) POC Chloride 110 mEq/L mEq/L (97-110) POC Total CO2 21 mEq/L L mEq/L (22-31) POC BUN 25 mg/dL H mg/dL (7-23) POC Creatinine 2.7 mg/dL H mg/dL (0.7-1.3) POC Glucose 146 mg/dL H mg/dL (70-100) ISTAT H&H 07/28/18 18:40 POC Hgb 12.6 gm/dL L gm/dL (13.7-17.5) POC Hct 37 % L % (40-51) Departure - Departure Disposition: [facility] Inpatient Acute Clinical Impression: Acute renal failure, Interstitial nephritis, Hypercalcemia Condition: Fair
[2018-07-28 18:51] LABS: PLATELET COUNT 463 10^3/uL (150-400)
--- NOTE | 2018-07-28 19:05 | CPEKG ---
Test Reason : OPEN Blood Pressure : / mmHG Vent. Rate : 060 BPM Atrial Rate : 060 BPM P-R Int : 208 ms QRS Dur : 103 ms QT Int : 379 ms P-R-T Axes : 002 048 006 degrees QTc Int : 379 ms Sinus rhythm Borderline prolonged NC interval Low voltage, precordial leads Borderline T abnormalities, anterior leads Confirmed by Dragan Fagan [id number]) on 07/28/2018 7:05:00 PM Referred By: Dragan Fagan Confirmed By:Dragan Fagan
[2018-07-28] MEDS ORDERED: PROMETHAZINE HCL 25 MG/ML INJ IVP PRN (19:26)
[2018-07-28] MEDS ORDERED: oxyCODONE IR 5 MG TAB PO PRN (19:26)
[2018-07-28] MEDS ORDERED: ONDANSETRON DISINTEGRATING 4 MG TAB PO PRN (19:26)
[2018-07-28] MEDS ORDERED: LORazepam 2 MG/ML INJ IVP PRN (19:26)
[2018-07-28] MEDS ORDERED: HYDROCODONE/APAP 5/325 TAB PO PRN (19:26)
[2018-07-28] MEDS ORDERED: ONDANSETRON 4 MG/2 ML VIAL IVP PRN (19:26)
[2018-07-28] MEDS ORDERED: LORazepam 0.5 MG TAB PO PRN (19:26)
[2018-07-28] MEDS ORDERED: PROCHLORPERAZINE MALEATE 10 MG TAB PO PRN (19:29)
--- NOTE | 2018-07-28 19:32 | PDGENHP ---
History and Physical - Chief Complaint sent for abnormal labs - History of Present Illness 57 yo M with stage 3 metastatic melanoma, CKD and migraine presenting after being found to have escalating creatinine and calcium at his oncologist office. He was hospitalized for MIMA back in February, at which time his creatinine had climbed to the 5's and ultimately the etiology was felt to be due to interstitial nephritis related to nivolumab. He notes that both due to the issues with his renal function and due to progression on the nivolumab, he was more recently switched to braftovi (encorafenib) and mektovi (binimetinib) in May. He states he had some issues with increasing creatinine on this medication, and it was held briefly and then resumed when his creatinine improved, and has been back on both of those medications it sound like since early July until it was noted on Wednesday that his labs were increasing again. He was told to come in today to the ER for evaluation and treatment of those abnormalities. He notes that he has felt about the same recently. He states he has noticed that he is urinating less frequently and smaller volumes than normal. He also notes that he has had a headache essentially every day since starting this new regimen, other than the times that he has been told to stop taking it. He has not had fever or chills, no pain with urination, no other medication changes. History Information - Allergies/Home Medication List Allergies/Adverse Reactions: ENVIRONMENTAL Allergy (Mild, Uncoded 07/28/18 18:27) RHINITIS Home Medications: Cholecalciferol Vit D3 [Vitamin D3 (*)] 5,000 units PO DAILY #0 02/16/17 [Last Taken 07/28/18] Levothyroxine [Synthroid 50 mcg (*)] 50 mcg PO DAILY06 #0 02/16/17 [Last Taken 07/28/18] Metoprolol Succinate Xr [Toprol Xl 25 mg (*)] 25 mg PO BID #0 02/16/17 [Last Taken 07/28/18 08:00] Omeprazole 40 mg PO DAILY06 03/02/18 [Last Taken 07/28/18] Binimetinib [Mektovi] 30 mg PO AD 07/28/18 [Last Taken 07/25/18] Encorafenib [Braftovi] 150 mg PO AD 07/28/18 [Last Taken 07/25/18] Enoxaparin [Lovenox 120 MG (*)] 120 mg SQ Q12H 07/28/18 [Last Taken 07/28/18 08: 00] Prochlorperazine Maleate [Compazine 10mg (*)] 10 mg PO BID PRN 07/28/18 [Last Taken Unknown] predniSONE 5 mg PO DAILY 07/28/18 [Last Taken 07/28/18] I have personally reviewed and updated: family history, medical history, social history, surgical history Past Medical History: See HPI List - Past Medical History cancer (malignant melanoma), DVT, GERD, hypertension, migraines Additional medical history: hypothyroid - Surgical History Reports: cancer surgery (melanoma resection) Additional surgical history: knee surgery - Family History Positive for: cancer Additional family history: Lung cancer - Social History Smoking Status: Never smoked Alcohol Use: Heavy Drug Use: None Additional social history: lives independently, 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 Review of Systems Review of Systems: ROS: 10pt was reviewed & negative except for what was stated in HPI & below Physical Exam Physical Exam: Temp Pulse Resp BP Pulse Ox 36.9 C 66 18 177/89 H 99 07/28/18 18:23 07/28/18 19:16 07/28/18 19:16 07/28/18 19:16 07/28/18 19:16 Constitutional: no apparent distress, obese Eyes: PERRL, anicteric sclera Ears, Nose, Mouth, Throat: moist mucous membranes, hearing normal Cardiovascular: regular rate and rhythym, no murmur, rub, or gallop, edema (1+ pitting edema BLE) Respiratory: no respiratory distress, no rales or rhonchi Gastrointestinal: normoactive bowel sounds, soft, non-tender abdomen Genitourinary: no bladder tenderness Skin: warm, normal color Musculoskeletal: full muscle strength Neurologic: AAOx3 Psychiatric: interacting appropriately, not anxious, not encephalopathic Lab Data & Imaging Review 07/28/18 18:35 07/28/18 18:35 WBC 9.32 10^3/uL (3.80-9.50) 07/28/18 18:35 RBC 3.96 10^6/uL (4.40-6.38) L 07/28/18 18:35 Hgb 12.3 g/dL (13.7-17.5) L 07/28/18 18:35 POC Hgb 12.6 gm/dL (13.7-17.5) L 07/28/18 18:40 Hct 37.7 % (40.0-51.0) L 07/28/18 18:35 POC Hct 37 % (40-51) L 07/28/18 18:40 MCV 95.2 fL (81.5-99.8) 07/28/18 18:35 MCH 31.1 pg (27.9-34.1) 07/28/18 18:35 MCHC 32.6 g/dL (32.4-36.7) 07/28/18 18:35 RDW 14.0 % (11.5-15.2) 07/28/18 18:35 Plt Count 463 10^3/uL (150-400) H 07/28/18 18:35 MPV 9.4 fL (8.7-11.7) 07/28/18 18:35 Neut % (Auto) 59.6 % (39.3-74.2) 07/28/18 18:35 Lymph % (Auto) 18.0 % (15.0-45.0) 07/28/18 18:35 [place] % (Auto) 12.7 % (4.5-13.0) 07/28/18 18:35 Eos % (Auto) 5.9 % (0.6-7.6) 07/28/18 18:35 Baso % (Auto) 2.1 % (0.3-1.7) H 07/28/18 18:35 Nucleat RBC Rel Count 0.2 % (0.0-0.2) 07/28/18 18:35 Absolute Neuts (auto) 5.55 10^3/uL (1.70-6.50) 07/28/18 18:35 Absolute Lymphs (auto) 1.68 10^3/uL (1.00-3.00) 07/28/18 18:35 Absolute Monos (auto) 1.18 10^3/uL (0.30-0.80) H 07/28/18 18:35 Absolute Eos (auto) 0.55 10^3/uL (0.03-0.40) H 07/28/18 18:35 Absolute Basos (auto) 0.20 10^3/uL (0.02-0.10) H 07/28/18 18:35 Absolute Nucleated RBC 0.02 10^3/uL (0-0.01) H 07/28/18 18:35 Immature Gran % 1.7 % (0.0-1.1) H 07/28/18 18:35 Immature Gran # 0.16 10^3/uL (0.00-0.10) H 07/28/18 18:35 POC Sodium 140 mEq/L (135-145) 07/28/18 18:40 POC Potassium 4.5 mEq/L (3.3-5.0) 07/28/18 18:40 POC Chloride 110 mEq/L (97-110) 07/28/18 18:40 POC Total CO2 21 mEq/L (22-31) L 07/28/18 18:40 POC BUN 25 mg/dL (7-23) H 07/28/18 18:40 POC Creatinine 2.7 mg/dL (0.7-1.3) H 07/28/18 18:40 POC Glucose 146 mg/dL (70-100) H 07/28/18 18:40 Visualized and Interpreted Chest x-ray results: Yes Chest X-Ray results: other (airways disease, from May) Visualized and Interpreted EKG results: Yes EKG Interpretation: Positive for: normal sinsus rhythm Assessment & Plan Assessment: 57 yo M with hx of melanoma as well as CKD presenting with MIMA on CKD and hypercalcemia # mima on ckd: with hx of interstitial nephritis and what looks like a new baseline after that of around 1.8, presenting now with creatinine of 2.5. He is on 2 new medications both of which have common reaction of increased creatinine , but also there are concerns that this could be a delayed reaction from the nivolumab still. With associated hypercalcemia, which is likely due to the mima but could also be contributing to it. Plan for now IVF overnight, bladder scan, urine studies and monitoring. If no improvement overnight, will need renal consult in am. # hypercalcemia: in setting of above and presumably due to same, he is asymptomatic, plan for IVF for now. Phos is normal, will check PTH, vitamin D metabolites, PTHrP. Could be hypercalcemia of malignancy but melanoma not typically causative for this. # malignant melanoma: as per HPI, recently started on new regimen of braftovi and mektovi, both being held given above. Oncology consulted and will follow while in house # hyperglycemia: has been persistent recently, will check hgb A1c # migraine: per patient related to his cancer meds, currently not an issue, monitoring # IP status, will require > 48 hours stay for eval/mgmt of above Patient new to my care. Old records reviewed and summarized as above. Care plan reviewed with ER doctor and Dr. Mancera as above.
[2018-07-28] MEDS: METOPROLOL SUCCINATE XR 25 MG TAB PO SCH (20:53)
[2018-07-28] MEDS: ENOXAPARIN 120 MG/0.8 ML SYR SC SCH (20:53)
[2018-07-28] MEDS: NS 1,000 ML IV SCH (20:54)
[2018-07-28] MEDS ORDERED: FUROSEMIDE 40 MG/4 ML VIAL IVP ONE (21:57)
[2018-07-28] MEDS ORDERED: HEPARIN 5,000 UNIT/0.5 ML INJ SC SCH (22:00)
[2018-07-28] MEDS: CALCITONIN 200 UNITS/ML SYR SC SCH (22:36)
--- NOTE | 2018-07-28 23:07 | GCON ---
[f rep st] CONSULTATION DATE OF CONSULTATION: 07/28/2018 REASON FOR CONSULTATION: Opinion regarding acute kidney injury and severe hypercalcemia. HISTORY OF PRESENT ILLNESS: The patient is a very pleasant 57-year-old gentleman who was diagnosed with metastatic melanoma in late 2017. He was started on biological therapy and hospitalized with acute kidney injury. His acute kidney injury was thought to be due to interstitial nephritis, was placed on prednisone therapy and over the course of the next several weeks, his serum creatinine settled at about 1.7 to 1.9. He was off his nivolumab after the acute kidney injury and was switched to Braftovi and Mektovi in May of 2018. He again had some difficulty with acute kidney injury, medications were held and resumed earlier this month. Over the course of the past couple of weeks he seen his serum creatinine increased from about 1.7 up to 1.9 and 2.3 and eventually up to 2.7. He was admitted to the hospital today for further evaluation and management of his acute kidney injury, also of note, his serum calcium level was 13.9. Generally speaking, he says he feels reasonably well. He has not been having fevers, chills, nausea, vomiting, chest pain, or shortness of breath. He gets occasional headaches with his infusions and sometimes gets some balance issues from his headaches. Has occasional cough. No sputum production. No hemoptysis , hematemesis, epistaxis, abdominal pain. No diarrhea, constipation, melena, or hematochezia. MEDICATION ALLERGIES: None. He does have environmental allergies. CURRENT MEDICATIONS: Include: 1. Vitamin D 5000 units daily. 2. Synthroid 50 mcg daily. 3. Prednisone 5 mg daily. 4. Compazine 10 mg twice daily. 5. Binimetinib 30 mg and encorafenib 150 mg orally. 6. Omeprazole 40 mg. 7. Metoprolol XR 25 mg b.i.d. 8. Lovenox 120 mg every 12 hours. The family history, social history, etc., have been reviewed. PAST MEDICAL HISTORY: Significant for: 1. 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 2. Metastatic melanoma. 3. Chronic interstitial nephritis. 4. Hypothyroidism. 5. Resection of lymph node from his groin. FAMILY HISTORY: Positive for lung cancer. SOCIAL HISTORY: He does not use tobacco, IV or recreational drugs. He lives independently. 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 He does drink alcohol. REVIEW OF SYSTEMS: A complete 12-point review of systems was performed with the pertinent positives and negatives as per the previous sections. PHYSICAL EXAMINATION: VITAL SIGNS: Blood pressure 174/76, pulse 59, respirations 18, temp 36.3. He has had 2 L and not much urine output. He weighs 116 kg. GENERAL: He is awake, alert, cooperative, and is in no acute distress. HEENT: Pupils are reactive to light. Extraocular movements are intact. Mucous membranes are somewhat dry. NECK: No lymphadenopathy or thyromegaly. HEART: Regular. Positive murmur. No rub. LUNGS: No rhonchi or wheezes. Occasional rales. ABDOMEN: Bowel sounds are positive. Soft, nontender, nondistended. Moderately obese. EXTREMITIES: Trace edema. No cyanosis or clubbing. NEUROLOGIC: No asterixis. SKIN: No unusual rashes. LYMPH: No palpable lymphadenopathy. MUSCULOSKELETAL: No effusions or tenderness. LABORATORY: Serum sodium is 140, potassium 4.5, chloride 110, CO2 of 21, BUN 25 , creatinine 2.7, calcium is 13.9, glucose 146. WBC 9.3, hemoglobin 12.6, hematocrit 37, platelet count 463,000. IMPRESSION: 1. Acute kidney injury, question if this is due to his therapy for his melanoma or perhaps due to his hypercalcemia. 2. Hypercalcemia. 3. Metastatic malignant melanoma. 4. Hypertension. 5. Oliguria today. RECOMMENDATIONS: 1. Continue his IV fluids as is. 2. We will give him 40 mg of Lasix IV. 3. We will give him subcutaneous calcitonin 460 units subcutaneously x1. We will continue to follow his renal function and calcium every 6 hours and we will adjust things as needed. If his calcium does not start to come down, we may add some Zometa 4 mg IV as well. Thank you for allowing me to participate in the care of your patient. If there is any questions, please do not hesitate to contact us. We will be following along with you. /[id number]/MODL MTDD
[2018-07-29] MEDS: LEVOTHYROXINE 50 MCG TAB PO SCH (05:09)
[2018-07-29] MEDS: PANTOPRAZOLE SODIUM 40 MG TAB PO SCH (05:09)
[2018-07-29 05:41] LABS: PLATELET COUNT 398 10^3/uL (150-400)
--- NOTE | 2018-07-29 08:32 | PDMN ---
Medical Necessity Medical necessity: Pt meets inpt criteria per MD order and [facility] [place] M-[id number], Renal Failure, Acute, 3 days: Renal failure cannot be managed in outpatient or observation care setting as indicated by 1 or more of the following: Clinically significant electrolyte abnormality that requires inpatient care- pt w/calcium of 13.9 on admission, still elevated at 12.5. 57 y/o w/stage 3 metastatic melanoma and CKD admitted from MD's office w/escalating creatinine and calcium, admitted w/MIMA on CKD w/creatinine of 2.5 (baseline is 1.8), still elevated today at 2.3. Est LOS>2MN for ongoing eval/management of MIMA and hypercalcemia.
--- NOTE | 2018-07-29 08:47 | ASMTLACE ---
LACE Acuity / Level of Answers: Yes Care: Did the patient have an inpatient admission? Comorbidities - select Answers: Any tumor (including all that apply lymphoma or leukemia) Moderate or severe liver or renal disease Opioid dependence / Chronic pain Other Notes: DVT; HTN; Hypothyroid # of Emergency department Answers: 3-4 visits in the last 6 months Score: 17 Date Signed: 07/29/2018 08:46 AM Electronically Signed By:Niharika Trevino
[2018-07-29] MEDS: METOPROLOL SUCCINATE XR 25 MG TAB PO SCH ×2 (08:50→20:22)
[2018-07-29] MEDS: ENOXAPARIN 120 MG/0.8 ML SYR SC SCH ×2 (08:50→20:21)
[2018-07-29] MEDS: predniSONE 5 MG TAB PO SCH (08:50)
[2018-07-29] MEDS: ACETAMINOPHEN 325 MG TAB PO PRN ×2 (09:50→20:31)
[2018-07-29] MEDS: CALCITONIN 200 UNITS/ML SYR SC SCH ×2 (10:07→20:21)
[2018-07-29] MEDS: NS 1,000 ML IV SCH ×2 (10:10→18:55)
--- NOTE | 2018-07-29 13:39 | HOSPPROG ---
Hospitalist Progress Note Assessment/Plan: 57 yo M with hx of melanoma as well as CKD presenting with MIMA on CKD and hypercalcemia # mima on ckd: hx of stage 3-4 CKD due to chronic interstitial nephritis from chemo. MIMA with creatinine of 2.5 on admission has responded to fluid and lasix. Today down to 2.1. Discussed with nephrology. -cont fluids -cont lasix -hold nephrotoxic meds -monitor renal function # hypercalcemia: either due to MIMA or other process. Has responded to fluids, lasix and calcitonin. calcium down from 13.9 to 11.8. -cont fluids, lasix -q6 hour calcium -repeat iCa -nephrology following PTH, PTHrP pending # malignant melanoma: as per HPI, recently started on new regimen of braftovi and mektovi, both being held given above. Oncology consulted and will follow while in house # hyperglycemia:A1c pending # migraine: per patient related to his cancer meds, currently not an issue, monitoring # IP status, will require > 48 hours stay for eval/mgmt of above. Patient new to my care, chart and records reviewed. Subjective: very talkative. feels fine. no other complaints. Objective: Vital Signs Temp Pulse Resp BP Pulse Ox 36.4 C 59 L 16 146/79 H 95 07/29/18 11:42 07/29/18 11:42 07/29/18 11:42 07/29/18 11:42 07/29/18 11:42 Laboratory Results 07/29/18 04:52 07/29/18 10:14 07/28/18 07/29/18 07/30/18 05:59 05:59 05:59 Intake Total 2250 Output Total 1400 500 Balance 850 -500 - Physical Exam Constitutional: no apparent distress, appears nourished, not in pain Eyes: PERRL, anicteric sclera, EOMI Ears, Nose, Mouth, Throat: moist mucous membranes, hearing normal, ears appear normal, no oral mucosal ulcers Cardiovascular: regular rate and rhythym, no murmur, rub, or gallop Respiratory: no respiratory distress, no rales or rhonchi, clear to auscultation Gastrointestinal: normoactive bowel sounds, soft, non-tender abdomen, no palpable masses Genitourinary: no bladder fullness, no bladder tenderness, no renal bruits Skin: no rashes or abrasions, no fluctuance, no induration Musculoskeletal: full muscle strength, no muscle tenderness, normal joint ROM Neurologic: AAOx3, sensation intact bilaterally Psychiatric: interacting appropriately, not anxious, not encephalopathic, thought process linear Lymph, Heme, Immunologic: no cervical LAD, no supraclavicular LAD ICD10 Worksheet Patient Problems: Problems Problem Status Onset Acute renal failure (ARF) Acute Hypercalcemia Acute Interstitial nephritis Acute Arthritis of knee Acute Right leg DVT Acute
--- NOTE | 2018-07-29 14:19 | GCON ---
[f rep st] CONSULTATION This 57-year-old patient of Dr. Ekta Arvizu is being treated for melanoma. He has had a number of melanomas initially diagnosed in 2015. He had an inguinal node recurrence on the left side which was resected, and he was treated with adjuvant nivolumab for a year. Shortly after completion of the nivolumab in February of 2018, he was noted to have a rising creatinine. After extensive evaluation he was felt to have an autoimmune nephritis and was treated with prednisone with improvement. Around the same time, however, he was noted to have recurrence in his right inguinal region, which was resected. He had no evidence of disease at that time, and as he was BRAF mutated, he was started on encorafenib and binimetinib. He tolerated this poorly with general fatigue and headaches. He was also noted to have a rising creatinine. This was held for a couple of weeks and then restarted at a lower dose, but unfortunately creatinine has again began rising and he has developed hypercalcemia and he is admitted for evaluation. About 5 or 10 days ago his prednisone which had initially been tapered was restarted because of his increasing creatinine. Currently, he says he feels reasonably well at this period of time. He has been seen by Nephrology and has been treated with IV fluids and calcitonin, and his creatinine and calcium have definitely improved. MEDICATIONS ON ADMISSION: Include vitamin D, Synthroid, 5 mg prednisone daily, binimetinib and encorafenib which are currently being held, omeprazole, metoprolol, and Lovenox. PAST MEDICAL HISTORY: He has a history of CKD, melanoma, interstitial nephritis , hypothyroidism, and I believe he had a DVT as well. 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 REVIEW OF SYSTEMS: Negative for 10 points. PHYSICAL EXAM: GENERAL: On limited exam today, he is pleasant and alert. No acute distress. VITAL SIGNS: Stable. LUNGS: Clear. CARDIAC: Unremarkable. ABDOMEN: Benign. White count is 9.88, hemoglobin 11, hematocrit 33.7. Creatinine on admission was 2.3, is currently 2.1. Calcium on admission was 13.9. It is currently 11.8. IMPRESSION: Patient with melanoma on adjuvant BRAF/MEK inhibition with rising creatinine and hypercalcemia. This is superimposed on underlying kidney damage felt to be related to an autoimmune nephritis. Fortunately he seems to be improving. My suspicion is that this is related to the BRAF/MEK inhibition and these drugs may need to be held, and I note he has been tolerating them quite poorly despite dose reductions. I do not think at least at this time we need to pursue an exacerbation of his autoimmune nephritis. However, if things do not proceed favorably, reinstitution of steroids and consideration of infliximab could be a consideration. Our service will follow with you. /[id number]/MODL MTDD
--- NOTE | 2018-07-29 16:54 | ASMTCMCOM ---
CM Note CM Note Notes: Reviewed chart, pt admitted for increased calcium and creatinine from his oncologist office. He has a history of metastatic melanoma. Pt lives alone with local sons. PT/OT cleared pt for home, anticipate he will dc home w/support of sons when medically stable. CM available should his needs change. DC Plan: Independent Date Signed: 07/29/2018 04:53 PM Electronically Signed By:Brigette Guadalupe RN
[2018-07-30] MEDS: NS 1,000 ML IV SCH ×2 (02:51→08:40)
[2018-07-30] MEDS: PANTOPRAZOLE SODIUM 40 MG TAB PO SCH (05:01)
[2018-07-30] MEDS: LEVOTHYROXINE 50 MCG TAB PO SCH (05:01)
[2018-07-30] MEDS: ENOXAPARIN 120 MG/0.8 ML SYR SC SCH ×2 (08:32→20:09)
[2018-07-30] MEDS: predniSONE 5 MG TAB PO SCH (08:32)
[2018-07-30] MEDS: METOPROLOL SUCCINATE XR 25 MG TAB PO SCH ×2 (08:32→20:09)
[2018-07-30] MEDS: ACETAMINOPHEN 325 MG TAB PO PRN (08:39)
[2018-07-30] MEDS: CALCITONIN 200 UNITS/ML SYR SC SCH (09:49)
--- NOTE | 2018-07-30 12:28 | SOAPPROG ---
SOAP Progress Note Assessment/Plan: Assessment: 1) Metastatic melanoma with BRAF mutation 2) Hypercalecmia likely secondary to combination BRAF/MEK inhibitors. 3) Acute on chronic renal insufficiency Plan: Doing better following IV fluid hydration and calcitonin. His creatinine is improved and calcium now normal. He wants to go home today which seems reasonable. He has follow up at the [facility] [place] office next week already scheduled. He will continue to hold his BRAF/MEK inhibitor. He verbalizes understanding of this. Encouraged to stay well hydrated when home. Questions answered. 07/30/18 12:24 Subjective: Feels better. Wants to go home. Objective: Vital Signs Temp Pulse Resp BP Pulse Ox 36.8 C 58 L 15 152/77 H 93 07/30/18 11:52 07/30/18 11:52 07/30/18 11:52 07/30/18 11:52 07/30/18 11:52 Laboratory Results 07/29/18 04:52 07/30/18 09:32 07/29/18 07/30/18 07/31/18 05:59 05:59 05:59 Intake Total 2250 1573 Output Total 1400 500 400 Balance 850 1073 -400 - Time Spent With Patient Time Spent With Patient: 20 minutes Physical Exam - Physical Exam General Appearance: alert, no apparent distress EENT: PERRL/EOMI Abdomen: non-tender, soft Skin: No rash Neuro/Psych: alert, normal mood/affect ICD10 Worksheet Patient Problems: Problems Problem Status Onset Acute renal failure (ARF) Acute Hypercalcemia Acute Interstitial nephritis Acute Arthritis of knee Acute Right leg DVT Acute
--- NOTE | 2018-07-30 15:46 | HOSPPROG ---
Hospitalist Progress Note Assessment/Plan: 57 yo M with hx of melanoma as well as CKD presenting with MIMA on CKD and hypercalcemia # mima on ckd: hx of stage 3-4 CKD due to chronic interstitial nephritis from chemo. MIMA with creatinine of 2.5 on admission has responded to fluid and lasix. Today down to 1.8 Discussed with nephrology who recommends stopping all fluids, and monitorign renal function. -cont fluids -cont lasix -hold nephrotoxic meds -monitor renal function # hypercalcemia: either due to MIMA or other process. Has responded to fluids, lasix and calcitonin. calcium down from 13.9 to 11.8 to 10.4. Will hold fluids and recheck Ca in am. -cont fluids, lasix -q6 hour calcium -repeat iCa -nephrology following PTH, PTHrP pending # malignant melanoma: as per HPI, recently started on new regimen of braftovi and mektovi, both being held given above. Oncology consulted and will follow while in house # hyperglycemia:A1c pending # migraine: per patient related to his cancer meds, currently not an issue, monitoring # IP status, will require > 48 hours stay for eval/mgmt of above. Subjective: feels fine. Objective: Vital Signs Temp Pulse Resp BP Pulse Ox 36.8 C 58 L 15 152/77 H 93 07/30/18 11:52 07/30/18 11:52 07/30/18 11:52 07/30/18 11:52 07/30/18 11:52 Laboratory Results 07/29/18 04:52 07/30/18 09:32 07/29/18 07/30/18 07/31/18 05:59 05:59 05:59 Intake Total 2250 1573 Output Total 1400 500 600 Balance 850 1073 -600 - Physical Exam Constitutional: no apparent distress, appears nourished, not in pain Eyes: PERRL, anicteric sclera, EOMI Ears, Nose, Mouth, Throat: moist mucous membranes, hearing normal, ears appear normal, no oral mucosal ulcers Cardiovascular: regular rate and rhythym, no murmur, rub, or gallop Respiratory: no respiratory distress, no rales or rhonchi, clear to auscultation Gastrointestinal: normoactive bowel sounds, soft, non-tender abdomen, no palpable masses Genitourinary: no bladder fullness, no bladder tenderness, no renal bruits Skin: no rashes or abrasions, no fluctuance, no induration Musculoskeletal: full muscle strength, no muscle tenderness, normal joint ROM Neurologic: AAOx3, sensation intact bilaterally Psychiatric: interacting appropriately, not anxious, not encephalopathic, thought process linear Lymph, Heme, Immunologic: no cervical LAD, no supraclavicular LAD ICD10 Worksheet Patient Problems: Problems Problem Status Onset Acute renal failure (ARF) Acute Hypercalcemia Acute Interstitial nephritis Acute Arthritis of knee Acute Right leg DVT Acute
--- NOTE | 2018-07-30 19:54 | SOAPPROG ---
SOAP Progress Note Assessment/Plan: Assessment/Plan: 57 yo M with metastatic melanoma complicated by MIMA related to biologic chemo meds (AIN related to Involumab, treated with steroids and Cr improved from 6 -- > 1.8) admitted with acute on chronic renal failure and hypercalcemia (Ca up to 13.9) # Hypercalcemia- secondary to combination BRAF/MEK inhibitors. Ca down to 10.1 on 07/30 --treated with IVF and calcitonin --recommended rechecking in AM off IVF to make sure not trending back up # MIMA- Cr 2.7 on admission, back down to baseline of 1.8 Ok for discharge in AM in Ca stable or continuing to downtrend. Has f/u already scheduled with [facility] Subjective: feeling well. ready for discharge. denies shortness of breath Objective: Vital Signs Temp Pulse Resp BP Pulse Ox 36.4 C 51 L 16 152/83 H 94 07/30/18 19:04 07/30/18 19:04 07/30/18 19:04 07/30/18 19:04 07/30/18 19:04 Laboratory Results 07/29/18 04:52 07/30/18 16:02 07/29/18 07/30/18 07/31/18 05:59 05:59 05:59 Intake Total 2250 1573 Output Total 1400 500 600 Balance 850 1073 -600 General- awake, alert, well-appearing, NAD Eyes- anicteric sclera, no conjunctival injection HEENT- MMM, no gross oral lesions CV- NRRR, no g/m/r Pulm- CTAB, no wheezes or rales, breathing comfortably on RA Extrem- no cyanosis, clubbing, or edema ICD10 Worksheet Patient Problems: Problems Problem Status Onset Acute renal failure (ARF) Acute Hypercalcemia Acute Interstitial nephritis Acute Arthritis of knee Acute Right leg DVT Acute
[2018-07-31] MEDS: LEVOTHYROXINE 50 MCG TAB PO SCH (05:19)
[2018-07-31] MEDS: PANTOPRAZOLE SODIUM 40 MG TAB PO SCH (05:19)
[2018-07-31 08:02] VITALS: BP 142/77
[2018-07-31] MEDS: predniSONE 5 MG TAB PO SCH (09:21)
[2018-07-31] MEDS: ENOXAPARIN 120 MG/0.8 ML SYR SC SCH (09:21)
[2018-07-31] MEDS: METOPROLOL SUCCINATE XR 25 MG TAB PO SCH (09:21)
--- NOTE | 2018-07-31 12:04 | ASMTCMCOM ---
CM Note CM Note Notes: Patient received discharge orders, CM met with patient, his son will tranpsort home and sons who live in town will assist with follow up. CM available to support if any CM/DC needs arise. Date Signed: 07/31/2018 12:03 PM Electronically Signed By:Shannon Giraldo
--- NOTE | 2018-07-31 12:29 | PDDCSUM ---
Discharge Summary Discharge Summary: Discharge diagnosis MIMA on CKD Hypercalcemia Malignant melanoma Hyperglycemia Patient was initially sent over from his oncologist's office after labs revealed an acute kidney injury as well as hypercalcemia. 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 Nephrology and oncology were consulted during this admission. Both Nephrology and Oncology thought that his current acute kidney injury and hypercalcemia were secondary to interstitial nephritis related to his to chemotherapy medications. These medications were held he was started on fluid resuscitation and Lasix and given a dose of calcitonin. His creatinine trended down although it took multiple days of fluids and Lasix in order for his renal function returned to his baseline creatinine of about 1.8. His calcium also trended down with fluids and Lasix. The day before discharge his fluids were stopped to see if his calcium would continue to trend down without IV fluids, which it did. Oncology recommended that his chemotherapy medications be held and so he was discharged home without these medications to follow up with Oncology to re-evaluate either restarting these or moving forward with a potential different regimen for his malignant melanoma. Disposition Home independent Follow-up Follow-up with Oncology as well as Nephrology I spent over 30 min on the discharge of this patient
== END 2018-07-31 12:10 | disposition home or self-care (01) | DRG 683 ==
LOC: F3E 20:21
PROVIDERS: ADMIT Internal Medicine; ATTEND Internal Medicine
DX: N17.9 Acute kidney failure, unspecified (principal); I12.9 Hypertensive chronic kidney disease with stage 1 through stage 4 chronic kidney disease, or unspecified chronic kidney disease; N18.4 Chronic kidney disease, stage 4 (severe); E83.52 Hypercalcemia; N11.9 Chronic tubulo-interstitial nephritis, unspecified; T45.1X5A Adverse effect of antineoplastic and immunosuppressive drugs, initial encounter; R73.9 Hyperglycemia, unspecified; C77.4 Secondary and unspecified malignant neoplasm of inguinal and lower limb lymph nodes; G43.909 Migraine, unspecified, not intractable, without status migrainosus; E03.9 Hypothyroidism, unspecified; K21.9 Gastro-esophageal reflux disease without esophagitis; Z85.820 Personal history of malignant melanoma of skin; Z86.718 Personal history of other venous thrombosis and embolism; Z79.52 Long term (current) use of systemic steroids
CPT/HCPCS: 82397-90; 82435-PO; 82565-PO; 82652-90; 82947-PO; 84132-PO; 84295-PO; 84520-PO; 85014-ER; 97161-GP; 97165-GO; J0630; J1650; J1940; J7512

== ENCOUNTER 2018-09-20 06:59 | Observation (INO) | payer OTHER | END 2018-09-20 18:05 | disposition home or self-care (01) | LOC: F3E 06:59 → F1N 10:47 ==